=== PATIENT | male | born 1940 | race Caucasian/White ===

== ENCOUNTER 2017-09-08 14:25 | Observation (INO) ==
--- NOTE | 2017-09-08 15:22 | Emergency Department Note ---
Disposition Clinical Impression: TIA (transient ischemic attack) Qualifiers: Transient cerebral ischemia type: unspecified Qualified Code(s): G45.9 - Transient cerebral ischemic attack, unspecified Disposition: Admitted As Inpatient Condition: Good Time of Disposition: 18:38 Neuro HPI - General Chief Complaint: ED Neuro Symptoms/Deficit Stated Complaint: numbness to right face and arm Time Seen by Provider: 09/08/17 14:49 Source: patient Limitations: no limitations Nursing Notes Reviewed: Yes Vital Signs Reviewed: Yes - History of Present Illness HPI Narrative: Patient 77-year-old male past medical history for stroke and LA who presents with 3 days of right-sided paresthesias. Patient states he is able to walk fine but does not trust his right leg since his symptoms started. I take that as some form of weakness. Patient used to be on Plavix but currently not on anything but aspirin. Patient denies any chest pain but states he has right shoulder pain for which he describes as an ache there is 3/10 but does not change with movement. Patient states the numbness and tingling is at the corner of the right side of his mouth. Pt saw Dr. Valencia today and his amlodipine was increased and when he found out the patient had his pain symptoms and came to the ED 3 days ago but left before he could be seen, patient was directed to come to the ED immediately. - Related Data Home Medications: Home Medications Medication Instructions Recorded Confirmed Aspirin 81 mg PO QAM 10/19/15 09/08/17 Isosorbide MONOnitrate (24 HR) 30 mg PO QPM 10/19/15 09/08/17 [Imdur] Latanoprost [Xalatan] 1 drop OP HS 10/19/15 09/08/17 Lisinopril [Zestril] 20 mg PO QAM 10/19/15 09/08/17 Metoprolol XL (24 HR) Succ [Toprol 25 mg PO QAM 10/19/15 09/08/17 XL] amLODIPine [Norvasc] 5 mg PO DAILY 09/08/17 09/08/17 Allergies/Adverse Reactions: Allergies Allergy/AdvReac Type Severity Reaction Status Date / Time [id number]-[id number] Reductase AdvReac Intermediate Cramping Verified 10/19/15 10:32 Inhibitor of the [Statins] Muscles All systems ED: reviewed and negative except as stated. Review of Systems: As Per HPI Constitutional: Denies: fever, chills, weakness Eyes: Reports: vision change ENT ED: Denies: congestion Cardiovascular: Denies: chest pain, palpitations Respiratory: Denies: cough, dyspnea, wheezes Gastrointestinal: Denies: abdominal pain, nausea, vomiting, diarrhea Genitourinary: Denies: urgency, dysuria Musculoskeletal: Denies: back pain, neck pain Integumentary: Denies: rash Neurological: Denies: headache Psychiatric: Denies: anxiety Endocrine: Denies: fatigue Past Medical History - Past Medical History Attestation: Yes The following information was validated with the patient. Source: patient Medical history: Reports: coronary artery disease, CVA, hypertension, TIA, other Surgical history: Reports: angioplasty/stent, cholecystectomy (Biliary stent), other Psychiatric history: Reports: no psych history - Social History Smoking Status: Never smoker Smokeless Tobacco Status: No Alcohol use: Reports: none Drug use: Reports: none Physical Exam Vital Signs Temperature 98.3 F 09/08/17 14:33 Pulse Rate 79 09/08/17 14:33 Respiratory Rate 18 09/08/17 14:33 Blood Pressure 198/95 09/08/17 14:33 O2 Sat by Pulse Oximetry 96 09/08/17 14:33 Temperature 98.3 F 09/08/17 14:33 Pulse Rate 76 09/08/17 15:00 Respiratory Rate 18 09/08/17 15:00 Blood Pressure 165/99 09/08/17 15:00 O2 Sat by Pulse Oximetry 96 09/08/17 15:05 Oxygen Delivery Oxygen Delivery Room Air Patient is alert and oriented 3 and in no acute distress. Patient has a NIH score is 0. Patient's old pronator drift and no focal neurologic deficits, patient has equal strength in upper and lower extremities 5/5. No decrease in sensation. No facial droop or aphasia. Patient able to family without issue no loss of balance no ataxia. Patient able to perform most of the cross midline but taken right thumb touching left ear with eyes closed and protrude tongue and repeat with other side. No dysdiadochokinesis - General Limitations: no limitations General appearance: alert - Head Head exam: atraumatic, normocephalic, normal inspection - Eye Eye exam: Present: normal appearance, PERRL, EOMI - ENT ENT exam: normal exam, normal oropharynx, mucous membranes moist - Neck Neck exam: Present: normal inspection, full ROM, trachea midline - Chest Chest inspection: Present: normal inspection, symmetric chest wall rise - Respiratory Respiratory exam: Present: normal lung sounds bilaterally - Cardiovascular Cardiovascular exam: Present: regular rate, normal rhythm, normal heart sounds - Abdominal Exam Abdominal exam: Present: soft, Non-Tender. Absent: tenderness, distention, guarding, rebound, rigidity - Extremities Exam Extremities exam: Present: normal inspection, full ROM, normal capillary refill. Absent: tenderness, pedal edema, joint swelling, calf tenderness - Back Exam Back exam: Present: normal inspection, full ROM. Absent: tenderness, CVA tenderness (R), CVA tenderness (L) - Neurological Exam Neurological exam: Present: alert, oriented X3, CN II-XII intact Course Vital Signs Temperature 98.3 F 09/08/17 14:33 Pulse Rate 79 09/08/17 14:33 Respiratory Rate 18 09/08/17 14:33 Blood Pressure 198/95 09/08/17 14:33 O2 Sat by Pulse Oximetry 96 09/08/17 14:33 Temperature 97.9 F 09/08/17 19:47 Pulse Rate 64 09/08/17 19:47 Respiratory Rate 16 09/08/17 19:47 Blood Pressure 177/97 09/08/17 19:47 O2 Sat by Pulse Oximetry 96 09/08/17 19:47 Oxygen Delivery Oxygen Delivery Room Air Neuro Symptoms/Deficit - MDM Narrative Medical decision making narrative: Patient complains of complete right-sided numbness and tingling and intermittent right lower extremity instability past 3 days history of stroke and LA concerning for CVA. Patient states he had paresthesias to the corner of his mouth on the right side currently not able to identify at time of exam. The patient's history is also concerning for ACS/LA. Workup includes CBC, BMP, troponin, CT head. patient has no lab abnormalities. CT head negative for any intracranial abnormalities. Patient's right shoulder imaging shows chronic degeneration and patient's chest x-ray shows no abdomen pains. Patient sent for MRI/MRA. Current plan is for admission for TIA this patient's symptoms seemed to have resolved. Patient understands and accepts the decision for admission Dr. Liu has accepted Pt for admission 1838hrs. - Lab Data Lab results reviewed: Yes I reviewed the patient's lab results. Lab results narrative: Short CBC 09/08/17 Range/Units 15:15 WBC 7.0 (4.3-11.1) K/mcL Hgb 16.6 (12.9-16.9) g/dL Hct 46.1 (37.5-50.1) % Plt Count 185 (140-400) K/mcL Neutrophils # 4.5 (1.6-8.9) K/mcL BMP 09/08/17 Range/Units 15:15 Sodium 140 (136-145) mEq/L Potassium 4.1 (3.5-4.5) mEq/L Chloride 106 (98-109) mEq/L Carbon Dioxide 25 (19-29) mEq/L BUN 15 (8-26) mg/dL Creatinine 1.09 (0.72-1.25) mg/dL Glucose 97 (70-99) mg/dL Calcium 9.7 (8.6-10.8) mg/dL Cardiac Enzymes 09/08/17 Range/Units 15:15 Troponin I 0.00 (0-0.03) ng/mL Result diagrams: 09/08/17 15:15 09/08/17 15:15 Lab Results 09/08/17 09/08/17 09/08/17 Range/Units 15:15 15:15 15:15 WBC 7.0 (4.3-11.1) K/mcL RBC 5.26 (4.19-5.50) M/mcL Hgb 16.6 (12.9-16.9) g/dL Hct 46.1 (37.5-50.1) % MCV 87.6 (83.0-100.0) fL MCH 31.6 (28.0-33.3) pg MCHC 36.0 H (31.6-35.5) g/dL RDW 13.1 (11.5-14.5) % Plt Count 185 (140-400) K/mcL MPV 9.6 (9.4-12.4) fL Immature Gran % 0.3 (0-4) % Seg Neutrophils % 63.4 % Lymphocytes % 22.3 % Monocytes % 9.0 % Eosinophils % 4.3 % Basophils % 0.7 % Neutrophils # 4.5 (1.6-8.9) K/mcL Lymphocytes # 1.6 (0.6-4.6) K/mcL Monocytes # 0.6 (0.0-1.3) K/mcL Eosinophils # 0.3 (0.0-0.6) K/mcL Basophils # 0.1 (0.0-0.2) K/mcL PT 13.8 H (9.4-12.1) Seconds INR 1.3 APTT 33.7 (26.0-36.0) Seconds Sodium 140 (136-145) mEq/L Potassium 4.1 (3.5-4.5) mEq/L Chloride 106 (98-109) mEq/L Carbon Dioxide 25 (19-29) mEq/L BUN 15 (8-26) mg/dL Creatinine 1.09 (0.72-1.25) mg/dL Est GFR ( Amer) > 60 (> 60) Est GFR (Non-Af Amer) > 60 (> 60) BUN/Creatinine Ratio 14 (6-26) Glucose 97 (70-99) mg/dL Calculated Osmolality 291 (280-300) Calcium 9.7 (8.6-10.8) mg/dL Troponin I (0-0.03) ng/mL B-Natriuretic Peptide (0-100) pg/mL 09/08/17 09/08/17 Range/Units 15:15 15:15 WBC (4.3-11.1) K/mcL RBC (4.19-5.50) M/mcL Hgb (12.9-16.9) g/dL Hct (37.5-50.1) % MCV (83.0-100.0) fL MCH (28.0-33.3) pg MCHC (31.6-35.5) g/dL RDW (11.5-14.5) % Plt Count (140-400) K/mcL MPV (9.4-12.4) fL Immature Gran % (0-4) % Seg Neutrophils % % Lymphocytes % % Monocytes % % Eosinophils % % Basophils % % Neutrophils # (1.6-8.9) K/mcL Lymphocytes # (0.6-4.6) K/mcL Monocytes # (0.0-1.3) K/mcL Eosinophils # (0.0-0.6) K/mcL Basophils # (0.0-0.2) K/mcL PT (9.4-12.1) Seconds INR APTT (26.0-36.0) Seconds Sodium (136-145) mEq/L Potassium (3.5-4.5) mEq/L Chloride (98-109) mEq/L Carbon Dioxide (19-29) mEq/L BUN (8-26) mg/dL Creatinine (0.72-1.25) mg/dL Est GFR ( Amer) (> 60) Est GFR (Non-Af Amer) (> 60) BUN/Creatinine Ratio (6-26) Glucose (70-99) mg/dL Calculated Osmolality (280-300) Calcium (8.6-10.8) mg/dL Troponin I 0.00 (0-0.03) ng/mL B-Natriuretic Peptide 28 (0-100) pg/mL - Radiology Data Radiology results reviewed: Yes I reviewed the patient's radiology results. Head CT 09/08/17 15:08 IMPRESSION: Stable CT scan of the head without acute intracranial abnormality. D/ / Javier Ariza MD / Javier Ariza MD Interpreting Provider: Javier Ariza MD Chest X-Ray 09/08/17 16:22 IMPRESSION: No acute cardiopulmonary abnormality. D/ / Holland Li MD / Holland Li MD Interpreting Provider: Holland Li MD Shoulder X-Ray 09/08/17 16:23 IMPRESSION: Moderate degenerative changes at the acromioclavicular joint without acute osseous fracture. D/ / Javier Ariza MD / Javier Ariza MD Interpreting Provider: Javier Ariza MD - EKG Data EKG attestation: Yes I reviewed and interpreted this EKG. EKG shows normal: sinus rhythm Rate: normal When compared to previous EKG there are: no significant changes Interpretation: normal EKG NIH Stroke Scale - Level of Consciousness LOC: Alert - LOC Questions LOC Questions: Answers both correctly - LOC Commands LOC Commands: Performs both correctly - Best Gaze Best Gaze: Normal - Visual Visual: No visual loss - Facial Palsy Facial Palsy: Normal - Motor Arms Motor Arm-Left: No drift for 10 seconds Motor Arm-Right: No drift for 10 seconds - Motor Legs Motor Leg-Left: No drift for 5 seconds Motor Leg-Right: No drift for 5 seconds - Limb Ataxia Limb Ataxia: Absent of affected limb too weak to perform exam - Sensory Sensory: Normal - Best Language Best Language: No aphasia - Dysarthria Dysarthria: Normal - Extinction and Inattention Extinction and Inattention: Normal - NIHSS Total Score NIHSS Total Score: 0 TPA Checklist - LKW: 3-4.5 hrs Add. Warnings/Precautions Patient/family understanding: The patient/family members have been counseled and understood the risk, benefit , and alternatives of treatment.
--- NOTE | 2017-09-08 15:25 | Emergency Department Note ---
START Narrative - START START: I examined this patient and my medical decision-making was reviewed with the Resident Physician. I agree with the documented findings, disposition and treatment plan as described except to the extent set forth below. 77-year-old male presents with a three-day history of right face arm and leg tingling. No true weakness. No speech problems. No vision changes. Patient has numbness and tingling sensation involving the right crack of the mouth which is concerning for CVA TIA symptoms. We will do lab work as well as a CT of the brain. Patient will need to be admitted for further workup. He states he did take a daily aspirin today.
[2017-09-08 15:51] LABS: Basophils # 0.1 K/mcL (0.0-0.2); Basophils % 0.7 %; Eosinophils # 0.3 K/mcL (0.0-0.6); Eosinophils % 4.3 %; Hematocrit 46.1 % (37.5-50.1); Hemoglobin 16.6 g/dL (12.9-16.9); Immature Granulocytes % 0.3 % (0-4); Lymphocytes # 1.6 K/mcL (0.6-4.6); Lymphocytes % 22.3 %; Mean Corpuscular Hemoglobin 31.6 pg (28.0-33.3); Mean Corpuscular Volume 87.6 fL (83.0-100.0); Mean Platelet Volume 9.6 fL (9.4-12.4); Monocytes # 0.6 K/mcL (0.0-1.3); Neutrophils # 4.5 K/mcL (1.6-8.9); Platelet Count 185 K/mcL (140-400); Red Blood Count 5.26 M/mcL (4.19-5.50); Red Cell Distribution Width 13.1 % (11.5-14.5); Segmented Neutrophils % 63.4 %
[2017-09-08 15:58] LABS: INR 1.3; Prothrombin Time 13.8 Seconds (9.4-12.1)
[2017-09-08 16:00] LABS: Activated Partial Thrombo Time 33.7 Seconds (26.0-36.0); BUN/Creatinine Ratio 14 (6-26); Blood Urea Nitrogen 15 mg/dL (8-26); Calcium 9.7 mg/dL (8.6-10.8); Carbon Dioxide 25 mEq/L (19-29); Chloride 106 mEq/L (98-109); Glucose 97 mg/dL (70-99); Osmolality,Calculated 291 (280-300); Potassium 4.1 mEq/L (3.5-4.5); Sodium 140 mEq/L (136-145); eGFR For African Americans > 60 (> 60); eGFR For Non-African Americans > 60 (> 60)
[2017-09-08] MEDS ORDERED: Acetaminophen 325 MG TABLET PO PRN (20:55)
[2017-09-08] MEDS ORDERED: Naloxone 0.4 MG/ML INJ IVP PRN (20:55)
[2017-09-08] MEDS ORDERED: Ondansetron 4 MG/2 ML VIAL IVP PRN (20:55)
[2017-09-08] MEDS ORDERED: Latanoprost 2.5 ML BOTTLE RIGHT EYE SCH (21:00)
--- NOTE | 2017-09-08 23:56 | Internal Med History&Physical ---
<Barb Lechuga - Last Filed: 09/09/17 00:08> Date of Encounter: 09/09/17 Time of Encounter: 21:00 Assessment and Plan (1) TIA (transient ischemic attack) Current visit: Yes Status: Acute 1 is experiencing numbness tingling to right side of face, has tingling to his right arm and leg as well. Has history of TIA symptoms in the past. CT and MRI MRA are negative for any endocrine abnormalities. We will obtain cardiac echo Patient is on a statin and we will initiate on fenofibrate check lipid profile in a.m. We will start aspirin and placed on Aggrenox Consult neurology-order has been placed-day team to follow up Continue with neuro checks Continuous cardiac monitoring Qualifiers: Transient cerebral ischemia type: unspecified Qualified Code(s): G45.9 - Transient cerebral ischemic attack, unspecified (2) CAD (coronary artery disease) Current visit: No Status: Chronic Is as history of coronary disease with stent placement in the past. We will continue with a beta sima fenofibrate as well as Aggrenox. Nitroglycerin as needed Oxygen as needed Continuous cardiac monitoring Qualifiers: Coronary Disease-Associated Artery/Lesion type: [place] artery [place] vs. transplanted heart: [place] heart Associated angina: with unspecified angina Qualified Code(s): I25.119 - Atherosclerotic heart disease of [place] coronary artery with unspecified angina pectoris (3) Hypertension Current visit: No Status: Chronic Continue with ANA and beta sima Low-sodium diet Qualifiers: Hypertension type: essential hypertension Qualified Code(s): I10 - Essential (primary) hypertension (4) DVT prophylaxis Current visit: No Status: Acute NAOMI delaney Internal Medicine - H&P: HPI Chief complaint: R sided numbness tingling Admitted From: Emergency Dept Plans for Post Hospital Care: Home History of present illness: Mr. Boyd is a 77 year old male past medical history of hypertension CAD with stent TIAs. Until patient the past 3 days he has been experiencing right-sided numbness and tingling to his face and right arm and right lower leg. He denies any facial droop difficulty swallowing or speaking difficulty walking or weakness. He does have past history of TIA and he said that symptoms are similar to previous TIA. He did see Dr. Valencia today and informed him of his symptoms and he was advised to go to the ER immediately. In the ER CT MRI MRA of head were all negative for any intracranial abnormalities or bleeds. Lab work was unremarkable he was admitted for further workup and evaluation. Presently he is neurologically intact with only complaints of slight paresthesia to right side of face particularly corner of his right mouth. Past Med Surg Social Fam HX - Past Medical History Medical history: coronary artery disease, CVA, hypertension, TIA, other Psychiatric history: no psych history - Past Surgical History Surgical History: angioplasty/stent, cholecystectomy (Biliary stent), other - Social History Smoking Status: Never smoker Smokeless Tobacco Status: No Alcohol use: none Drug use: none - Family History Father Living Status: Hx Family Cardiac Disorders: Yes Internal Medicine - H&P: Meds Aspirin 81 mg PO QAM 10/19/15 [History] Isosorbide MONOnitrate (24 HR) [Imdur] 30 mg PO QPM 10/19/15 [History] Latanoprost [Xalatan] 1 drop OP HS 10/19/15 [History] Lisinopril [Zestril] 20 mg PO QAM 10/19/15 [History] Metoprolol XL (24 HR) Succ [Toprol XL] 25 mg PO QAM 10/19/15 [History] amLODIPine [Norvasc] 5 mg PO DAILY 09/08/17 [History] 3 Allergy/AdvReac Type Severity Reaction Status Date / Time Ljwysmq-Lli-Olw Reductase AdvReac Intermediate Cramping Verified 10/19/15 10:32 Inhibitor of the [Statins] Muscles All Systems PM: A 10-system review of systems was performed and is negative for pertinent findings except as documented above in the HPI. - Constitutional Constitutional: no chills, no fever(s), no night sweats - EENT Eyes: no change in vision, no discharge, no pain, no photophobia Nose, mouth and throat: no dysphagia, no nasal discharge, no neck pain, no sore throat - Cardiovascular Cardiovascular ROS IM: no chest pain, no diaphoresis, no dyspnea, no lightheadedness, no palpitations, no syncope - Respiratory Respiratory: no cough, no dyspnea, no wheezing, no excessive phlegm production - Gastrointestinal Gastrointestinal: no abdominal pain, no diarrhea, no hematemesis, no hematochezia, no melena, no nausea, no vomiting - Musculoskeletal Musculoskeletal ROS IM: no numbness, no tingling - Integumentary Integumentary IM: no rash, no unusual bruising - Neurological Neurological ROS: numbness, paresthesias, tingling - Hematologic/Lymphatic Hematologic/Lymphatic: no easy bruising - Constitutional Vitals: Temp Pulse Resp BP Pulse Ox 97.9 F 64 16 177/97 96 09/08/17 19:47 09/08/17 19:47 09/08/17 19:47 09/08/17 19:47 09/08/17 19:47 General appearance: Present: A&O X 3, answers questions appropriately - Head Head exam: Present: atraumatic, normocephalic - Eye Eye exam: Present: PERRL, conjuntiva pink, sclera anicteric Pupils: Present: PERRL - Neck Neck exam general surgery: Present: supple, trachea midline. Absent: lymphadenopathy - Respiratory Respiratory exam: Present: CTAB. Absent: accessory muscle use, rales, rhonchi, wheezes - Cardiovascular Cardiovascular exam: Present: RRR, +S1, +S2. Absent: diastolic murmur, gallop, rubs, systolic murmur - GI/Abdominal GI/Abdominal exam: Present: normal bowel sounds, soft, no peritoneal signs. Absent: distended, tenderness - Extremities Exam Extremities exam: Present: warm, radial pulses palpable and symmetrical. Absent : calf tenderness, cyanotic, pedal edema - Neurological Exam Neurological exam: Present: alert, CN II-XII intact, oriented X3, no focal deficits, strengths equal and symetr throughout. Absent: pronater drift, facial droop, speech deficit - Skin Skin exam: Present: dry, intact Internal Med - H&P Results - Labs CBC & Chem 7: 09/08/17 15:15 09/08/17 15:15 Labs: Cardiac Enzymes 09/08/17 Range/Units 21:15 Troponin I 0.00 (0-0.03) ng/mL - EKG Data EKG shows normal: sinus rhythm Rate: normal - EKG Data Prior EKG available for review: yes When compared to previous EKG: there is no significant change - Diagnostic Studies Other Images Additional comments: Brain MRI 09/08/17 00:00 IMPRESSION: 1. No acute intracranial abnormality. 2. Normal MRA of the head. 3. Stable bilateral anterior frontal encephalomalacia in keeping with sequela of remote insult. 4. Stable mild chronic white matter microvascular ischemic changes. 5. Findings suggest acute right sphenoid sinusitis. D/ / Holland Li MD / Holland Li MD Interpreting Provider: Holland Li MD Head CT 09/08/17 15:08 IMPRESSION: Stable CT scan of the head without acute intracranial abnormality. D/ / Javier Ariza MD / Javier Ariza MD Interpreting Provider: Javier Ariza MD Chest X-Ray 09/08/17 16:22 IMPRESSION: No acute cardiopulmonary abnormality. D/ / Holland Li MD / Holland Li MD Interpreting Provider: Holland Li MD Shoulder X-Ray 09/08/17 16:23 IMPRESSION: Moderate degenerative changes at the acromioclavicular joint without acute osseous fracture. D/ / Javier Ariza MD / Javier Ariza MD Interpreting Provider: Javier Ariza MD Head MRA 09/08/17 17:27 IMPRESSION: 1. No acute intracranial abnormality. 2. Normal MRA of the head. 3. Stable bilateral anterior frontal encephalomalacia in keeping with sequela of remote insult. 4. Stable mild chronic white matter microvascular ischemic changes. 5. Findings suggest acute right sphenoid sinusitis. D/ / Holland Li MD / Holland Li MD Interpreting Provider: Holland Li MD <Lupillo Gardner - Last Filed: 09/09/17 01:11> Date of Encounter: 09/08/17 Internal Medicine - H&P: HPI History of present illness: Mr. Boyd is a 77 year old male All Systems PM: A 10-system review of systems was performed and is negative for pertinent findings except as documented above in the HPI. - Constitutional Vitals: Temp Pulse Resp BP Pulse Ox 97.8 F 71 15 103/55 94 09/09/17 00:00 09/09/17 00:00 09/09/17 00:00 09/09/17 00:00 09/09/17 00:00 Internal Med - H&P Results - Labs CBC & Chem 7: 09/08/17 15:15 09/08/17 15:15 Labs: Cardiac Enzymes 09/08/17 Range/Units 21:15 Troponin I 0.00 (0-0.03) ng/mL - Attending Attestation Correction; date of encounter was 09/08/17 and not 09/09/17 I personally interviewed and examined this patient and my medical decision- making was reviewed with the Advanced Practice Nurse. I agree with the documented findings, disposition and treatment plan as described except to the extent set forth below. Patient with TIA about 3 to 4 years ago presents with similar symptoms on the same side as prior, MRI of the brain did not reveal any evidence of an acute infarct. MRA of the head was unremarkable for high-grade stenosis, will follow carotid dopplers, 2D echo for thrombus, neurology consult. Lupillo Gardner MD, MPH Hospitalist
[2017-09-09 05:38] LABS: Basophils # 0.1 K/mcL (0.0-0.2); Basophils % 0.8 %; Eosinophils # 0.3 K/mcL (0.0-0.6); Hematocrit 42.5 % (37.5-50.1); Immature Granulocytes % 0.3 % (0-4); Lymphocytes # 1.5 K/mcL (0.6-4.6); Lymphocytes % 22.6 %; Mean Corpuscular HGB Conc 34.6 g/dL (31.6-35.5); Mean Corpuscular Hemoglobin 31.2 pg (28.0-33.3); Mean Corpuscular Volume 90.2 fL (83.0-100.0); Mean Platelet Volume 9.8 fL (9.4-12.4); Monocytes # 0.8 K/mcL (0.0-1.3); Monocytes % 11.3 %; Platelet Count 181 K/mcL (140-400); Red Blood Count 4.71 M/mcL (4.19-5.50)
[2017-09-09 05:39] LABS: Hemoglobin 14.7 g/dL (12.9-16.9)
[2017-09-09 05:59] LABS: BUN/Creatinine Ratio 16 (6-26); Blood Urea Nitrogen 17 mg/dL (8-26); Calcium 9.3 mg/dL (8.6-10.8); Carbon Dioxide 23 mEq/L (19-29); Chloride 109 mEq/L (98-109); Chol/HDL Ratio 6.1 (0-4.9); Cholesterol 152 mg/dL (< 200); Glucose 108 mg/dL (70-99); HDL Cholesterol 25 mg/dL (40-59); LDL Cholesterol,Calculated 58 mg/dL (0-99); Magnesium 2.2 mg/dL (1.6-2.6); Osmolality,Calculated 290 (280-300); Potassium 3.9 mEq/L (3.5-4.5); Sodium 139 mEq/L (136-145); Triglycerides 343 mg/dL (< 150); eGFR For African Americans > 60 (> 60); eGFR For Non-African Americans > 60 (> 60)
[2017-09-09] MEDS ORDERED: *HR* Heparin 5,000 UNIT/ML VIAL SQ SCH (06:00)
[2017-09-09] MEDS ORDERED: Latanoprost 2.5 ML BOTTLE RIGHT EYE SCH (09:00)
[2017-09-09] MEDS ORDERED: Metoprolol XL (24 HR) Succ 25 MG TAB.ER.24H PO SCH (09:00)
[2017-09-09] MEDS ORDERED: Aspirin 81 MG TAB.CHEW PO SCH (09:00)
[2017-09-09] MEDS ORDERED: Lisinopril 20 MG TABLET PO SCH (09:00)
[2017-09-09] MEDS ORDERED: Fenofibrate 54 MG TABLET PO SCH (09:00)
--- NOTE | 2017-09-09 11:01 | Neurology - Consult Note ---
<Naren Sanchez - Last Filed: 09/09/17 11:23> Date of Encounter: 09/09/17 Time of Encounter: 10:30 Assessment and Plan (1) Neurological symptoms Current Visit: Yes Status: Acute Patient reports having continued right facial and leg tingling for several days duration. Neurological exam only revealed minor hyperalgesia in his right face and leg. Imaging performed includes a MRI of the brain, MRA of the head, carotid dopplers, and echocardiogram. No infarct is seen on MRI, vasculature of his head is normal, and the carotid dopplers show non-stenotic plaque bilaterally (preliminarily). His main finding is hyperalgesia that could be vascular, but more likely is coming from his cervical spine. Will wait on final results of echo and dopplers will start gabapentin QHS and 1 now for nerve pain Patient started on aggrenox, continue this Will obtain MRI of cervical spine History of Present Illness Chief complaint: Continued right sided tingling HPI: Mr. Boyd is a 77 year old male with medical history significant for coronary artery disease, hypertension, and prior paresthesias of right arm and face presented to the emergency room yesterday after 3 days of right face and arm tingling. He states his symptoms began on Wednesday note not improved much since that point. He states he is having a tingling sensation on the right side of his face and down the entire right side of his body. He states that they are was some possible right facial droop observed, but is not present at this time. He states he has significant shoulder pain in the first couple days of his tingling, but this has abated on its own somewhat. He denies having any headache, or new significant changes in vision. He states he had cataract surgery 3 years ago after which she has had double vision at long distances. At no time last few days has he had any weakness or lack of coordination. He is otherwise been healthy with no complaints of fever/chills, chest pain, or shortness of breath. Past Med Surg Social Fam HX - Past Medical History Medical history: coronary artery disease, CVA, hypertension, TIA, other Psychiatric history: no psych history - Past Surgical History Surgical History: angioplasty/stent, cholecystectomy (Biliary stent), other - Social History Smoking Status: Never smoker Smokeless Tobacco Status: No Alcohol use: none Drug use: none - Family History Father Living Status: Hx Family Cardiac Disorders: Yes Medications and Allergies Aspirin 81 mg PO QAM 10/19/15 [History] Isosorbide MONOnitrate (24 HR) [Imdur] 30 mg PO QPM 10/19/15 [History] Latanoprost [Xalatan] 1 drop OP HS 10/19/15 [History] Lisinopril [Zestril] 20 mg PO QAM 10/19/15 [History] Metoprolol XL (24 HR) Succ [Toprol XL] 25 mg PO QAM 10/19/15 [History] amLODIPine [Norvasc] 5 mg PO DAILY 09/08/17 [History] Fenofibrate [Tricor] 54 mg PO DAILY #30 tablet 09/09/17 [Rx] Gabapentin [Neurontin] 300 mg PO HS #42 capsule 09/09/17 [Rx] 3 Allergy/AdvReac Type Severity Reaction Status Date / Time rosuvastatin [From Crestor] AdvReac Intermediate Cramping Verified 09/09/17 11: 22 of the Muscles Review of Systems: Gen: Denies fever, denies chills, denies weakness CV: Denies chest pain Resp: Denies shortness of breath, denies coughing GI: Denies nausea, denies vomiting, denies abdominal pain MSK: Reports pain in shoulder as per history of present illness, denies muscle weakness Neuro: Denies headache, denies confusion, denies focal weakness, denies numbness , reports tingling as per HPI, denies new vision changes Physical Examination - Vital Signs Vital Signs: Initial Vital Signs Temp Pulse Resp BP Pulse Ox 98.3 F 79 18 198/95 96 09/08/17 14:33 09/08/17 14:33 09/08/17 14:33 09/08/17 14:33 09/08/17 14:33 - Exam Exam: General: Cooperative, pleasant, no acute distress, alert and oriented 3, answers questions appropriately HEENT: Normocephalic, atraumatic, neck supple, trachea midline, Conjunctiva pink , sclera anicteric, EOMI, PERRL, oral mucosa moist, no orophargeal erythema or exudates, no carotid bruits appreciated Respiratory: No accessory muscle usage Cardiovascular: Regular rate and rhythm Extremities: No calf tenderness, noncyanotic, no pedal edema appreciated, warm, lower extremity pulses palpable and symmetrical Neurological: Alert and oriented 3, no facial droop, no focal deficits, cranial nerves II through XII grossly intact bilaterally, rapid alternating movements smooth with good gómez, finger to nose smooth and accurate, sensation to gross touch intact in upper and lower extremities bilaterally, increased sensation to light touch in right face and right leg, strength 5/5 in upper and lower extremities bilaterally, DTRs 2/4 in Achilles, patellar, brachioradialis, biceps, and triceps, Romberg normal, gait smooth without limp Results - Laboratory Findings CBC and BMP: 09/09/17 05:20 09/09/17 05:20 Abnormal lab findings: Abnormal lab results PT 13.8 Seconds (9.4-12.1) H 09/08/17 15:15 Glucose 108 mg/dL (70-99) H 09/09/17 05:20 Triglycerides 343 mg/dL (< 150) H 09/09/17 05:20 VLDL Cholesterol, Calc 69 mg/dL (< 31) H 09/09/17 05:20 HDL Cholesterol 25 mg/dL (40-59) L 09/09/17 05:20 Cholesterol/HDL Ratio 6.1 (0-4.9) H 09/09/17 05:20 Consult Discharge Plan - Plan Additional Instructions: Follow-up with your primary care provider/[facility] physician to return to work. Follow-up with neurology in the office as scheduled. Taking the medications as directed. I have given you a 2 week supply of gabapentin, you will need to follow up with her primary care provider for refills and continued evaluation. Return to the emergency department as needed for any other problems or concerns , or if symptoms return or worsen. Return to prior activities as tolerated. Continue your other home medications. Referrals: [facility] [place],Adiel Forman MD [Primary Care Provider] - Prescriptions: Fenofibrate [Tricor] 54 mg PO DAILY #30 tablet Gabapentin [Neurontin] 300 mg PO HS #42 capsule <Gini Wilkinson I - Last Filed: 09/09/17 16:53> Date of Encounter: 09/09/17 Assessment and Plan (1) Neurological symptoms Current Visit: Yes Status: Acute I agree with Dr Sanchez, documentation. MRi of brain didt show any acute acute intracranial abnormality. 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 mild chronic white matter microvascular ischemic changes noted along with acute right sphenoid sinusitis. as NO evidence of any acute stroke, suggest to continue on ANTIPLATELET therapy as its symptoms could be related to underlying DJD of cervical spine, may benefit from MR C Spine other meds continue as its Shemar Wilkinson MD History of Present Illness HPI: Mr. Boyd is a 77 year old male All Systems: A 10-system review of systems was performed and is negative for pertinent findings except as documented above in the HPI. Physical Examination - Vital Signs Vital Signs: Initial Vital Signs Temp Pulse Resp BP Pulse Ox 98.3 F 79 18 198/95 96 09/08/17 14:33 09/08/17 14:33 09/08/17 14:33 09/08/17 14:33 09/08/17 14:33 Results - Laboratory Findings CBC and BMP: 09/09/17 05:20 09/09/17 05:20 Abnormal lab findings: Abnormal lab results PT 13.8 Seconds (9.4-12.1) H 09/08/17 15:15 Glucose 108 mg/dL (70-99) H 09/09/17 05:20 Triglycerides 343 mg/dL (< 150) H 09/09/17 05:20 VLDL Cholesterol, Calc 69 mg/dL (< 31) H 09/09/17 05:20 HDL Cholesterol 25 mg/dL (40-59) L 09/09/17 05:20 Cholesterol/HDL Ratio 6.1 (0-4.9) H 09/09/17 05:20
[2017-09-09] MEDS ORDERED: Gabapentin 300 MG CAPSULE PO STA (11:32)
[2017-09-09 14:54] VITALS: BP 152/82
--- NOTE | 2017-09-09 16:22 | Discharge Summary ---
Date of Encounter: 09/09/17 Time of Encounter: 09:50 - Discharge Diagnosis (1) TIA (transient ischemic attack) Priority: Primary Status: Acute Comments: Patient reported to the emergency department with complaints of tingling/ numbness to the right side of his body. He denies loss of strength in the extremities. He does not have any focal neurological deficits. He does have very minimal droop corner right mouth. Patient has had similar symptoms in the past was diagnosed with a TIA. Head CT and brain MRI/head MRA are negative for any intracranial abnormalities. Carotid Doppler showed bilateral nonstenotic plaque. C-spine MRI showed mild C6-7 degenerative disc disease and mild multilevel facet hypertrophy. It also showed multilevel spinal canal stenosis, moderate at C6-7 and mild at C3-4, C5-C6, and C7-T1. There is also multilevel neural foraminal narrowing as detailed above in greatest involvement of the left C4 neuroforaminal foramen where it is moderate. patient has been seen by neurology who ordered the C-spine MRI. They placed him on Neurontin, he will continue this after discharge. Neurologically, patient is intact and has no noticeable deficits or weakness. 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 Patient will continue baby aspirin daily, as well as Aggrenox 1 capsule twice daily, he will also continue his beta sima, Zestril, and TriCor. Qualifiers: Transient cerebral ischemia type: unspecified Qualified Code(s): G45.9 - Transient cerebral ischemic attack, unspecified (2) CAD (coronary artery disease) Priority: Secondary Status: Chronic Comments: Patient denies any chest pain. He has a history of coronary disease with stent placement in the past. Continue Imdur, beta sima, fenofibrate, as well as will be starting Aggrenox. Patient has nitroglycerin when necessary after discharge. He is not requiring any supplemental oxygen. Qualifiers: Coronary Disease-Associated Artery/Lesion type: [place] artery [place] vs. transplanted heart: [place] heart Associated angina: with unspecified angina Qualified Code(s): I25.119 - Atherosclerotic heart disease of [place] coronary artery with unspecified angina pectoris (3) Hypertension Priority: Secondary Status: Chronic Comments: Continue home medications. Blood pressures been well controlled and the patient setting. He will need to continue a low-fat, low-sodium diet. Continue to monitor blood pressure frequently and share results with primary care provider. Qualifiers: Hypertension type: essential hypertension Qualified Code(s): I10 - Essential (primary) hypertension (4) DVT prophylaxis Priority: Secondary Status: Acute Comments: NAOMI delaney. Early ambulation. (5) Tingling of right arm and right side of face Priority: Secondary Status: Acute Comments: Plan as above. (6) DDD (degenerative disc disease) Priority: Secondary Status: Chronic Comments: Plan as above. Qualifiers: Spinal region: mid-cervical Mid-cervical spinal level: C6-C7 Qualified Code(s): M50.323 - Other cervical disc degeneration at C6-C7 level (7) Spinal stenosis Priority: Secondary Status: Chronic Comments: Noted on MR cervical spine without contrast. Most likely be the cause of patient's numbness and tingling to the right side. The patient was started on gabapentin 300 mg by mouth 3 times a day, he states that it makes him feel badly and he does not want to continue taking it. I will lower the dose and see if that has any effectiveness. I recommend the patient does not drive and he knows the effects of the medication. Patient will follow up with neurology in the office for follow-up on this admission. Qualifiers: Spinal region: cervical Qualified Code(s): M48.02 - Spinal stenosis, cervical region - Discharge Medications Prescriptions: Fenofibrate [Tricor] 54 mg PO DAILY #30 tablet Gabapentin [Neurontin] 100 mg PO BID #20 capsule Home Medications: Aspirin 81 mg PO QAM 10/19/15 [History] Isosorbide MONOnitrate (24 HR) [Imdur] 30 mg PO QPM 10/19/15 [History] Latanoprost [Xalatan] 1 drop OP HS 10/19/15 [History] Lisinopril [Zestril] 20 mg PO QAM 10/19/15 [History] Metoprolol XL (24 HR) Succ [Toprol XL] 25 mg PO QAM 10/19/15 [History] amLODIPine [Norvasc] 5 mg PO DAILY 09/08/17 [History] Fenofibrate [Tricor] 54 mg PO DAILY #30 tablet 09/09/17 [Rx] Gabapentin [Neurontin] 100 mg PO BID #20 capsule 09/09/17 [Rx] Allergies/Adverse Reactions: 3 Allergy/AdvReac Type Severity Reaction Status Date / Time rosuvastatin [From Crestor] AdvReac Intermediate Cramping Verified 09/09/17 11: 22 of the Muscles Procedures/tests Complete & Pending: Procedures Performed prior 72 hours Category Date Time Status MR cervical spine wo con [MR] Routine MRI 09/09/17 11:34 Completed ECG 12 lead ECG [ECG] Routine Y 09/08/17 14:32 Completed EV carotid duplex imaging BI Routine Y 09/09/17 01:09 Completed EV echocardiogram Routine Y 09/09/17 22:43 Completed Date of admission: 09/08/17 18:45 Primary care physician: Adiel Valencia MD Consults: 09/08/17 22:46 Consult to Neurology [CONS] Routine Consulting Provider: Neu[facility] Reason for Consult: Numbness tingling to R side of body. Past HX of TIA - MRI MRA CT negative Time Notified: 22:48 Call Completed: No Discharging clinician: Chloe Shah Anticipated date of discharge: 09/09/17 - Patient Status Disposition: Home, Self-Care Condition: Good Functional capacity at discharge: independent ambulation Overall status at discharge: patient is progressing back to baseline - Discharge Instructions Follow Up With: Adiel Valencia MD [Primary Care Provider] - Additional Instructions: Follow-up with your primary care provider/[facility] physician to return to work. Follow-up with neurology in the office as scheduled. Taking the medications as directed. I have given you a 2 week supply of gabapentin at a lower dose with decreased frequency than you had earlier. You will need to follow up with her primary care provider for refills and continued evaluation. Return to the emergency department as needed for any other problems or concerns , or if symptoms return or worsen. Return to prior activities as tolerated. Continue your other home medications. - Diet and Activity Activity: return to work once cleared by your PCP/specialist, resume usual activities as tolerated Diet: advance to your usual diet Hospital course: Mr. Boyd is a 77 year old male - Time Spent with Patient Total time spent providing and/or coordinating discharge services: Less than 30 minutes - Constitutional Vitals: Temp Pulse Resp BP Pulse Ox 97.9 F 69 16 152/82 95 09/09/17 14:52 09/09/17 14:52 09/09/17 14:52 09/09/17 14:52 09/09/17 14:52 General appearance: Present: cooperative, A&O X 3, pleasant, no acute distress, answers questions appropriately - Head Head exam: Present: atraumatic, normal inspection, normocephalic - Eye Eye exam: Present: EOMI, normal appearance, PERRL, conjuntiva pink, sclera anicteric. Absent: nystagmus - Neck Neck exam general surgery: Present: supple, trachea midline. Absent: lymphadenopathy, tenderness - Respiratory Respiratory exam: Present: CTAB. Absent: accessory muscle use, chest wall tenderness, rales, respiratory distress, rhonchi, wheezes - Cardiovascular Cardiovascular exam: Present: RRR, +S1, +S2. Absent: diastolic murmur, gallop, rubs, systolic murmur - GI/Abdominal GI/Abdominal exam: Present: normal bowel sounds, soft, no peritoneal signs. Absent: distended, hepatomegaly, tenderness - Extremities Exam Extremities exam: Present: normal capillary refill, normal inspection, warm, radial pulses palpable and symmetrical. Absent: calf tenderness, cyanotic, pedal edema, tenderness - Neurological Exam Neurological exam: Present: alert, oriented X3, no focal deficits. Absent: facial droop, speech deficit - Skin Skin exam: Present: dry, intact, normal color, warm. Absent: rash
[2017-09-09] MEDS ORDERED: Isosorbide MONOnitrate (24 HR) 30 MG TAB.ER.24H PO SCH (18:00)
--- NOTE | 2017-09-09 20:10 | Electrocardiograph Report ---
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
--- NOTE | 2017-09-09 20:12 | Electrocardiograph Report ---
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
[2017-09-09] MEDS ORDERED: Gabapentin 300 MG CAPSULE PO SCH (21:00)
== END 2017-09-09 18:32 | disposition home or self-care (01) ==
LOC: 3BNU 14:25 → EMEROO 14:25 → 3BNU 19:20
PROVIDERS: ADMIT Nurse Practitioner Family; ATTEND Registered Nurse

== ENCOUNTER 2017-11-10 14:01 | Inpatient (IN) ==
[2017-11-10] MEDS ORDERED: 0.9 % Sodium Chloride 1,000 ML IVC ONE (14:31)
[2017-11-10] MEDS ORDERED: Ondansetron 4 MG/2 ML VIAL IVP ONE (14:31)
--- NOTE | 2017-11-10 14:35 | Emergency Department Note ---
Disposition Clinical Impression: Acute pancreatitis Qualifiers: Pancreatitis type: unspecified pancreatitis type Acute pancreatitis complication: unspecified Qualified Code(s): K85.90 - Acute pancreatitis without necrosis or infection, unspecified Disposition: Admitted As Inpatient Condition: Fair Referrals: Adiel Valencia MD [Primary Care Provider] - Forms: ED Satisfaction Letter, Work/School Release Time of Disposition: 18:48 Abdominal Pain HPI - General Chief Complaint: ED Abdominal Pain Stated Complaint: Pancreatitis Time Seen by Provider: 11/10/17 14:16 Source: patient, family Mode of arrival: ambulatory Limitations: no limitations Nursing Notes Reviewed: Yes Vital Signs Reviewed: Yes - History of Present Illness HPI Narrative: 77-year-old male history of hypertension, CAD, hyperlipidemia, gallstone pancreatitis status post cholecystectomy presents with left lower quadrant pain mild epigastric pain, he rates the pain 8 out of 10 this started yesterday at 8 PM. He has been having it throughout the day associated with nausea no emesis. So she with anorexia. He has had no diarrhea melena or hematochezia. He states he had a cholecystectomy and required subsequent stents to his gallbladder ducts up in [facility]. Patient also has a history of CAD status post stents in his heart., Denies chest pain at this time. Denies fever chills shortness of breath. Pt Subjective Complaint: abdominal pain Onset (ago): hour(s) (18) Consistency: constant Location: LLQ Pain Severity: moderate Pain Scale: 8 Quality: cramping, stabbing, aching Radiation: LLQ, epigastric Migration to: no migration Worsens with: eating Associated symptoms: Reports: denies other symptoms, nausea. Denies: vomiting, constipation, hematemesis, hematochezia - Related Data Home Medications Medication Instructions Recorded Confirmed Aspirin 81 mg PO QAM 10/19/15 11/10/17 Isosorbide MONOnitrate (24 HR) 30 mg PO QPM 10/19/15 11/10/17 [Imdur] Latanoprost [Xalatan] 1 drop OP HS 10/19/15 11/10/17 Lisinopril [Zestril] 20 mg PO QAM 10/19/15 11/10/17 Metoprolol XL (24 HR) Succ [Toprol 25 mg PO QAM 10/19/15 11/10/17 XL] amLODIPine [Norvasc] 10 mg PO DAILY 10/11/17 12/13/17 Allergies Allergy/AdvReac Type Severity Reaction Status Date / Time rosuvastatin [From Crestor] AdvReac Intermediate Cramping Verified 11/10/17 14: 08 of the Muscles All systems ED: reviewed and negative except as stated. Review of Systems: As Per HPI Constitutional: Denies: fever, chills, weakness ENT ED: Denies: ear pain Cardiovascular: Denies: chest pain Respiratory: Denies: cough, dyspnea Gastrointestinal: Reports: as per HPI, abdominal pain, nausea. Denies: vomiting , hematemesis, melena, hematochezia Genitourinary: Denies: urgency, dysuria Musculoskeletal: Denies: back pain, neck pain Abdominal Pain PMH - Past Medical History Medical history: Reports: coronary artery disease, CVA, hypertension, TIA, other Male Surgical History: Reports: angioplasty/stent, cholecystectomy, orthopedic, other Psychiatric history: Reports: no psych history - Social History Smoking status: Never smoker Alcohol use: Reports: none Drug use: Reports: none Physical Exam Constitutional: Moderately uncomfortable elderly male,, vital signs reviewed and wnl Eyes: PERRLA, sclera anicteric ENT & Mouth: MMM Neck: normal inspection, neck is supple Resp: CTA bilaterally, no resp distress CV: RRR, no m/g/r GI: Incision consistent with cholecystectomy, left lower quadrant pain with no rigidity or guarding, moderate tenderness to palpation normal bowel sounds. Neuro: A&O3, CNII-XII grossly intact, FRY Skin: on limited exam, skin intact with no rashes or lesions - General Limitations: no limitations General appearance: alert, in no apparent distress Course Course Narrative: Elderly gentleman with left lower quadrant abdominal pain differential includes pancreatitis as this is where his pain is been in the past for pancreatitis, and diverticulitis plan for abdomen and pelvis CT scan, basic lab work will reassess. - Reevaluation(s) Reevaluation #1: CT shows evidence of pancreatic stranding, lipase was 2000, patient was admitted to Dr. Yeager for medical management acute pancreatitis. Patient currently hemodynamic stable did require additional analgesic medication, admitted to the hospitalist service Time: 18:48 Vital Signs Temperature 98.5 F 11/10/17 14:08 Pulse Rate 66 11/10/17 14:08 Respiratory Rate 15 11/10/17 14:08 Blood Pressure 140/71 11/10/17 14:08 O2 Sat by Pulse Oximetry 98 11/10/17 14:08 Temperature 98.5 F 11/10/17 14:08 Pulse Rate 73 11/10/17 16:51 Respiratory Rate 12 11/10/17 16:51 Blood Pressure 159/78 11/10/17 16:51 O2 Sat by Pulse Oximetry 96 11/10/17 16:51 Oxygen Delivery Oxygen Delivery Nasal Cannula Abdominal Pain - Differential Diagnosis Differential Diagnosis: Likely: acute appendicitis, diverticulitis, ischemic bowel, pancreatitis - Medical Records Medical records reviewed: Yes I reviewed the patient's medical records. - Lab Data Lab results reviewed: Yes I reviewed the patient's lab results. Result diagrams: 11/10/17 15:06 11/10/17 15:06 Lab Results 11/10/17 11/10/17 11/10/17 Range/Units 14:19 15:06 15:06 WBC 15.3 H (4.3-11.1) K/mcL RBC 5.52 H (4.19-5.50) M/mcL Hgb 17.0 H (12.9-16.9) g/dL Hct 49.0 (37.5-50.1) % MCV 88.8 (83.0-100.0) fL MCH 30.8 (28.0-33.3) pg MCHC 34.7 (31.6-35.5) g/dL RDW 13.2 (11.5-14.5) % Plt Count 198 (140-400) K/mcL MPV 9.5 (9.4-12.4) fL Immature Gran % 0.3 (0-4) % Seg Neutrophils % 85.6 % Lymphocytes % 6.9 % Monocytes % 6.3 % Eosinophils % 0.6 % Basophils % 0.3 % Neutrophils # 13.1 H (1.6-8.9) K/mcL Lymphocytes # 1.1 (0.6-4.6) K/mcL Monocytes # 1.0 (0.0-1.3) K/mcL Eosinophils # 0.1 (0.0-0.6) K/mcL Basophils # 0.1 (0.0-0.2) K/mcL Sodium 143 (136-145) mEq/L Potassium 3.7 (3.5-4.5) mEq/L Chloride 107 (98-109) mEq/L Carbon Dioxide 25 (19-29) mEq/L BUN 19 (8-26) mg/dL Creatinine 1.27 H (0.72-1.25) mg/dL Est GFR ( Amer) > 60 (> 60) Est GFR (Non-Af Amer) 55 L (> 60) BUN/Creatinine Ratio 15 (6-26) Glucose 145 H (70-99) mg/dL Calculated Osmolality 301 H (280-300) Lactic Acid (0.5-2.2) mmol/L Calcium 10.3 (8.6-10.8) mg/dL Total Bilirubin 1.8 H (0.2-1.2) mg/dL Direct Bilirubin 0.7 H (0.0-0.5) mg/dL Indirect Bilirubin 1.1 (0.0-1.2) mg/dL AST 16 (5-34) Units/L ALT 15 (0-55) Units/L Alkaline Phosphatase 92 (38-126) Units/L Troponin I (0-0.03) ng/mL Serum Total Protein 7.8 (6.0-8.3) g/dL Albumin 4.3 (3.5-5.0) g/dL Globulin 3.5 (2.4-3.5) g/dL Albumin/Globulin Ratio 1.2 (1.1-2.2) Lipase 2002 H (8-78) Units/L Urine Color Yellow (Yellow) Urine Clarity Clear (Clear) Urine pH 6.0 (5.0-8.0) pH Units Ur Specific [place] 1.021 (1.010-1.025) Urine Protein Negative (Neg-Trace) mg/dL Urine Glucose (UA) Normal (Normal) mg/dL Urine Ketones Trace H (Negative) mg/dL Urine Blood Small H (Negative) Urine Nitrite Negative (Negative) Urine Bilirubin Negative (Negative) Urine Urobilinogen Normal (Normal) mg/dL Ur Leukocyte Esterase Negative (Negative) Urine Microscopic RBC 5-15 H (0-3) per hpf Urine Microscopic WBC 0-3 (0-3) per hpf Ur Squamous Epith Cells Moderate H (None-Few) per lpf Urine Bacteria None Seen (None-Few) per hpf Hyaline Casts None Seen (None-Few) per lpf Ur Culture Indicated? NO (NO) 11/10/17 11/10/17 Range/Units 15:06 15:06 WBC (4.3-11.1) K/mcL RBC (4.19-5.50) M/mcL Hgb (12.9-16.9) g/dL Hct (37.5-50.1) % MCV (83.0-100.0) fL MCH (28.0-33.3) pg MCHC (31.6-35.5) g/dL RDW (11.5-14.5) % Plt Count (140-400) K/mcL MPV (9.4-12.4) fL Immature Gran % (0-4) % Seg Neutrophils % % Lymphocytes % % Monocytes % % Eosinophils % % Basophils % % Neutrophils # (1.6-8.9) K/mcL Lymphocytes # (0.6-4.6) K/mcL Monocytes # (0.0-1.3) K/mcL Eosinophils # (0.0-0.6) K/mcL Basophils # (0.0-0.2) K/mcL Sodium (136-145) mEq/L Potassium (3.5-4.5) mEq/L Chloride (98-109) mEq/L Carbon Dioxide (19-29) mEq/L BUN (8-26) mg/dL Creatinine (0.72-1.25) mg/dL Est GFR ( Amer) (> 60) Est GFR (Non-Af Amer) (> 60) BUN/Creatinine Ratio (6-26) Glucose (70-99) mg/dL Calculated Osmolality (280-300) Lactic Acid 1.5 (0.5-2.2) mmol/L Calcium (8.6-10.8) mg/dL Total Bilirubin (0.2-1.2) mg/dL Direct Bilirubin (0.0-0.5) mg/dL Indirect Bilirubin (0.0-1.2) mg/dL AST (5-34) Units/L ALT (0-55) Units/L Alkaline Phosphatase (38-126) Units/L Troponin I 0.01 (0-0.03) ng/mL Serum Total Protein (6.0-8.3) g/dL Albumin (3.5-5.0) g/dL Globulin (2.4-3.5) g/dL Albumin/Globulin Ratio (1.1-2.2) Lipase (8-78) Units/L Urine Color (Yellow) Urine Clarity (Clear) Urine pH (5.0-8.0) pH Units Ur Specific [place] (1.010-1.025) Urine Protein (Neg-Trace) mg/dL Urine Glucose (UA) (Normal) mg/dL Urine Ketones (Negative) mg/dL Urine Blood (Negative) Urine Nitrite (Negative) Urine Bilirubin (Negative) Urine Urobilinogen (Normal) mg/dL Ur Leukocyte Esterase (Negative) Urine Microscopic RBC (0-3) per hpf Urine Microscopic WBC (0-3) per hpf Ur Squamous Epith Cells (None-Few) per lpf Urine Bacteria (None-Few) per hpf Hyaline Casts (None-Few) per lpf Ur Culture Indicated? (NO) - Radiology Data Radiology results reviewed: Yes I reviewed the patient's radiology results. Abdomen/Pelvis CT 11/10/17 14:36 IMPRESSION: 1. Mild stranding surrounding the pancreas with mild pancreatic ductal dilatation. Findings most compatible with acute pancreatitis. Recommend clinical correlation. No organized drainable fluid collections are identified. 2. 5 diverticulosis without evidence for diverticulitis. 3. Severe atherosclerotic disease with mild ectasia of the infrarenal abdominal aorta which is slightly increased when compared with previous exam. D/ / John Eugene MD / John Eugene MD Interpreting Provider: John Eugene MD - EKG Data EKG attestation: Yes I reviewed and interpreted this EKG. EKG shows normal: sinus rhythm (63 bpm LA 173 QRS 96 QTC [address] no [address] segment elevations or depressions, left axis) Interpretation: nonspecific ST-T wave changes - Core Measures AMI Core Measures Followed: No
--- NOTE | 2017-11-10 14:46 | Emergency Department Note ---
START Narrative - START START: I examined this patient and my medical decision-making was reviewed with the Resident Physician. I agree with the documented findings, disposition and treatment plan as described except to the extent set forth below. 77 year old male with HXo f pancreatitis presnts to the eD with complaints of pancreatitis type symptoms. He staets that his last attack was about 2013 when his galbladder was removed in addition to he has had pancreatitis attacks since 1970s. Sami states that typically when he has pancreatitis attacks it is located inthe LLQ as opposed to in his epigastrium. Sami denies F/N/V/D. He states it is acutelly tender to the area and he has been having difficulty sleeping due to it. Sami deiens heamturia, history ofkidney stones, UTIs, or blood stools. We will do labs and ABCT with IVF meds/fluids for therapy
[2017-11-10 14:50] LABS: Bilirubin,Urine Negative (Negative); Blood,Urine Small (Negative); Clarity,Urine Clear (Clear); Color,Urine Yellow (Yellow); Glucose,Urine (UA) Normal (Normal); Ketones,Urine Trace mg/dL (Negative); Leukocyte Esterase,Urine Negative (Negative); Nitrite,Urine Negative (Negative); Protein,Urine Negative (Neg-Trace); Specific Gravity,Urine 1.021 (1.010-1.025); Urobilinogen,Urine Normal (Normal)
[2017-11-10 14:51] LABS: Bacteria,Urine None Seen per hpf (None-Few); Hyaline Casts,Urine None Seen per lpf (None-Few); Squamous Epithelial Cell,Urine Moderate per lpf (None-Few); WBC,Urine 0-3 per hpf (0-3)
[2017-11-10 15:14] LABS: Basophils # 0.1 K/mcL (0.0-0.2); Basophils % 0.3 %; Eosinophils # 0.1 K/mcL (0.0-0.6); Eosinophils % 0.6 %; Immature Granulocytes % 0.3 % (0-4); Lymphocytes # 1.1 K/mcL (0.6-4.6); Lymphocytes % 6.9 %; Mean Corpuscular HGB Conc 34.7 g/dL (31.6-35.5); Mean Corpuscular Hemoglobin 30.8 pg (28.0-33.3); Mean Corpuscular Volume 88.8 fL (83.0-100.0); Mean Platelet Volume 9.5 fL (9.4-12.4); Monocytes % 6.3 %; Neutrophils # 13.1 K/mcL (1.6-8.9); Platelet Count 198 K/mcL (140-400); Red Blood Count 5.52 M/mcL (4.19-5.50); Red Cell Distribution Width 13.2 % (11.5-14.5); Segmented Neutrophils % 85.6 %
[2017-11-10] MEDS ORDERED: *HR* Morphine 2 MG/ML SYRINGE IVP ONE (15:21)
[2017-11-10 15:32] LABS: Alanine Aminotransferase 15 Units/L (0-55); Albumin 4.3 g/dL (3.5-5.0); Albumin/Globulin Ratio 1.2 (1.1-2.2); Alkaline Phosphatase 92 Units/L (38-126); Aspartate Amino Transferase 16 Units/L (5-34); BUN/Creatinine Ratio 15 (6-26); Bilirubin,Direct 0.7 mg/dL (0.0-0.5); Bilirubin,Indirect 1.1 mg/dL (0.0-1.2); Bilirubin,Total 1.8 mg/dL (0.2-1.2); Blood Urea Nitrogen 19 mg/dL (8-26); Calcium 10.3 mg/dL (8.6-10.8); Carbon Dioxide 25 mEq/L (19-29); Chloride 107 mEq/L (98-109); Globulin 3.5 g/dL (2.4-3.5); Glucose 145 mg/dL (70-99); Osmolality,Calculated 301 (280-300); Potassium 3.7 mEq/L (3.5-4.5); Sodium 143 mEq/L (136-145); Total Protein 7.8 g/dL (6.0-8.3); eGFR For African Americans > 60 (> 60); eGFR For Non-African Americans 55 (> 60)
[2017-11-10 15:47] LABS: Lipase 2002 Units/L (8-78)
[2017-11-10] MEDS ORDERED: 0.9 % Sodium Chloride 1,000 ML IVC SCH (16:00)
[2017-11-10] MEDS ORDERED: *HR* HYDROmorphone (PF) 1 MG/ML SYRINGE IVP ONE (17:00)
[2017-11-10] MEDS: 0.9 % Sodium Chloride 1,000 ML IVC SCH (17:07)
[2017-11-10] MEDS ORDERED: *HR* Morphine 2 MG/ML SYRINGE IVP PRN (20:09)
[2017-11-10] MEDS: *HR* Morphine 2 MG/ML SYRINGE IVP PRN (20:29)
[2017-11-10] MEDS ORDERED: Naloxone 0.4 MG/ML INJ IVP PRN (22:29)
--- NOTE | 2017-11-10 22:33 | Internal Med History&Physical ---
Date of Encounter: 11/10/17 Time of Encounter: 22:33 Assessment and Plan (1) Acute pancreatitis Current visit: Yes Status: Acute complicated biliary hx , now with elevated Bili Conservative management with IVF , NPO, IV morphine Consult GI to assist in further management Qualifiers: Pancreatitis type: unspecified pancreatitis type Acute pancreatitis complication: no infection or necrosis Qualified Code(s): K85.90 - Acute pancreatitis without necrosis or infection, unspecified (2) CAD (coronary artery disease) Current visit: No Status: Chronic s/p stent. Now stable. Continue cardiac meds Qualifiers: Coronary Disease-Associated Artery/Lesion type: [place] artery [place] vs. transplanted heart: [place] heart Associated angina: with unspecified angina Qualified Code(s): I25.119 - Atherosclerotic heart disease of [place] coronary artery with unspecified angina pectoris (3) Hypertension Current visit: No Status: Chronic continue med Qualifiers: Hypertension type: essential hypertension Qualified Code(s): I10 - Essential (primary) hypertension Internal Medicine - H&P: HPI Chief complaint: Abdo pain History of present illness: Mr. Boyd is a 77 year old male who presents with recurrent acute pancreatitis He has a hx of recurrent pancreatitis, over 8-10 x since . He has been seen by Dr Calderón at [facility] where the etiology was thought to be biliary in nature. In 2013, he completed a cholecystectomy and later in 2014, had CBD stenting that is now removed. He denies alcohol of triglyceridemia or idiopathic etiology. In terms of this current episode, he started to experience symptoms at aroun 830 pm last evening with persistent sharp, 10/10 pain in the murali-umbilical area. No radiation. No N/V. Associated with insomnia (with the pain) EKG personally reviewed with rate 63 CT/CT abd pelvis w iv no oral IMPRESSION: 1. Mild stranding surrounding the pancreas with mild pancreatic ductal dilatation. Findings most compatible with acute pancreatitis. Recommend clinical correlation. No organized drainable fluid collections are identified. 2. 5 diverticulosis without evidence for diverticulitis. 3. Severe atherosclerotic disease with mild ectasia of the infrarenal abdominal aorta which is slightly increased when compared with previous exam. Past Med Surg Social Fam HX - Past Medical History Medical history: coronary artery disease, CVA, hypertension, TIA, other Psychiatric history: no psych history - Past Surgical History Surgical History: angioplasty/stent, cholecystectomy, other - Social History Smoking Status: Never smoker Smokeless Tobacco Status: No Alcohol use: none Drug use: none - Family History Father Living Status: Hx Family Cardiac Disorders: Yes (heart attack) Internal Medicine - H&P: Meds Aspirin 81 mg PO QAM 10/19/15 [History] Isosorbide MONOnitrate (24 HR) [Imdur] 30 mg PO QPM 10/19/15 [History] Latanoprost [Xalatan] 1 drop OP HS 10/19/15 [History] Lisinopril [Zestril] 20 mg PO QAM 10/19/15 [History] Metoprolol XL (24 HR) Succ [Toprol XL] 25 mg PO QAM 10/19/15 [History] amLODIPine [Norvasc] 10 mg PO DAILY 09/08/17 [History] 3 Allergy/AdvReac Type Severity Reaction Status Date / Time rosuvastatin [From Crestor] AdvReac Intermediate Cramping Verified 11/10/17 14: 08 of the Muscles All Systems PM: A 10-system review of systems was performed and is negative for pertinent findings except as documented above in the HPI. Review of systems: ROS 14 point review of systems reviewed as best as possible given presentation. Pertinent positive or negative as per HPI or otherwise reviewed as negative - Constitutional Vitals: Temp Pulse Resp BP Pulse Ox 98.7 F 74 14 122/50 93 11/10/17 21:26 11/10/17 21:26 11/10/17 21:26 11/10/17 21:26 11/10/17 21:26 Exam: General - AAO x 3 Psych - Appropriate affect/speech. No agitation Eyes - BOGDAN. Eye lids intact. No scleral icterus Heart - Sinus. RRR. S1 and S2 present. No added HS/murmurs appreciated. No elevated JVD appreciated. Lung - Adequate air entry b/l, No crackles/wheezes appreciated GI - Murali-umbilical tenderness. No guarding or rigidity. No hepatosplenomegaly/ ascites. BS+ - No CVA/suprapubic tenderness or palpable bladder distension Skin - Intact. No rash/petechiae/ecchymosis. Warm extremities MSK - Joints with normal ROM. No joint swellings Internal Med - H&P Results - Labs CBC & Chem 7: 11/10/17 15:06 11/10/17 15:06
[2017-11-10] MEDS ORDERED: D5% in Water 1,000 ML IVC PRN (23:24)
[2017-11-10] MEDS ORDERED: Dextrose Gel 15 GM PO PRN ×2 (23:24)
[2017-11-10] MEDS ORDERED: *HR* Dextrose 50 % in Water (Syg) 50 ML SYRINGE IVP PRN (23:24)
[2017-11-11] MEDS: *HR* Morphine 2 MG/ML SYRINGE IVP PRN ×5 (00:41→18:25)
[2017-11-11] MEDS: 0.9 % Sodium Chloride 1,000 ML IVC SCH ×3 (04:44→21:41)
[2017-11-11] MEDS: *HR* Enoxaparin 40 MG/0.4 ML SYRINGE SQ SCH (05:29)
[2017-11-11 06:57] LABS: Alanine Aminotransferase 12 Units/L (0-55); Albumin/Globulin Ratio 1.1 (1.1-2.2); Alkaline Phosphatase 68 Units/L (38-126); Aspartate Amino Transferase 15 Units/L (5-34); BUN/Creatinine Ratio 18 (6-26); Bilirubin,Direct 0.5 mg/dL (0.0-0.5); Bilirubin,Indirect 0.9 mg/dL (0.0-1.2); Bilirubin,Total 1.4 mg/dL (0.2-1.2); Blood Urea Nitrogen 17 mg/dL (8-26); Calcium 8.8 mg/dL (8.6-10.8); Carbon Dioxide 25 mEq/L (19-29); Chloride 110 mEq/L (98-109); Globulin 3.2 g/dL (2.4-3.5); Glucose 127 mg/dL (70-99); Lipase 547 Units/L (8-78); Osmolality,Calculated 301 (280-300); Sodium 144 mEq/L (136-145); Total Protein 6.6 g/dL (6.0-8.3); Triglycerides 99 mg/dL (< 150); eGFR For African Americans > 60 (> 60); eGFR For Non-African Americans > 60 (> 60)
[2017-11-11 07:00] LABS: Albumin 3.4 g/dL (3.5-5.0); Basophils % 0.2 %; Eosinophils # 0.1 K/mcL (0.0-0.6); Eosinophils % 0.7 %; Hematocrit 44.2 % (37.5-50.1); Immature Granulocytes % 0.4 % (0-4); Lymphocytes % 7.8 %; Mean Corpuscular HGB Conc 33.9 g/dL (31.6-35.5); Mean Corpuscular Volume 91.3 fL (83.0-100.0); Mean Platelet Volume 9.8 fL (9.4-12.4); Monocytes # 1.3 K/mcL (0.0-1.3); Monocytes % 9.8 %; Neutrophils # 10.8 K/mcL (1.6-8.9); Platelet Count 173 K/mcL (140-400); Potassium 4.1 mEq/L (3.5-4.5); Red Blood Count 4.84 M/mcL (4.19-5.50); Red Cell Distribution Width 13.3 % (11.5-14.5); Segmented Neutrophils % 81.1 %
[2017-11-11] MEDS: Aspirin 81 MG TAB.CHEW PO SCH (09:47)
[2017-11-11] MEDS: amLODIPine 5 MG TABLET PO SCH (09:47)
[2017-11-11] MEDS: Lisinopril 20 MG TABLET PO SCH (09:47)
[2017-11-11] MEDS: Metoprolol XL (24 HR) Succ 25 MG TAB.ER.24H PO SCH (09:47)
--- NOTE | 2017-11-11 09:57 | Internal Med Progress Note ---
Date of Encounter: 11/11/17 Time of Encounter: 09:52 - Assessment and plan (1) Acute pancreatitis Current Visit: Yes Status: Acute Assessment and plan: Has had 8-10 episodes in the last 15-20 years. Status post cholecystectomy, CBD stent placement and removal in the past. Presented with left-sided abdominal pain and significantly elevated serum lipase , leukocytosis and acute kidney injury, currently improved. Improving symptoms. Continue supportive care with bowel rest, IV hydration, pain control with when necessary IV morphine and when necessary antiemetics. GI consult. CT abdomen/pelvis showed mild peripancreatic stranding around the head along with mild pancreatic ductal dilatation. Qualifiers: Pancreatitis type: unspecified pancreatitis type Acute pancreatitis complication: no infection or necrosis Qualified Code(s): K85.90 - Acute pancreatitis without necrosis or infection, unspecified (2) Diabetes mellitus Current Visit: Yes Status: Chronic Assessment and plan: Blood sugars noted to be well controlled. Continue Accu-Chek blood glucose monitoring with sliding scale insulin as needed. 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 transplanted heart: [place] heart Associated angina: with unspecified angina Qualified Code(s): I25.119 - Atherosclerotic heart disease of [place] coronary artery with unspecified angina pectoris (4) Hypertension Current Visit: Yes Status: Chronic Assessment and plan: Blood pressure well controlled. Qualifiers: Hypertension type: essential hypertension Qualified Code(s): I10 - Essential (primary) hypertension - Subjective Interval history: Feels better with improving abdominal pain, in left upper area; no nausea, vomiting, fever/chills, diarrhea; no chest pain or dyspnea; - Constitutional Vitals: Temp Pulse Resp BP Pulse Ox 98.6 F 81 14 118/68 96 11/11/17 07:58 11/11/17 07:58 11/11/17 07:58 11/11/17 07:58 11/11/17 07:58 General appearance: Present: A&O X 3, answers questions appropriately - Respiratory Respiratory exam: Present: CTAB. Absent: accessory muscle use, rales, rhonchi, wheezes - Cardiovascular Cardiovascular exam: Present: RRR, +S1, +S2. Absent: diastolic murmur, gallop, rubs, systolic murmur - GI/Abdominal GI/Abdominal exam: Present: normal bowel sounds, soft, no peritoneal signs. Absent: distended, tenderness - Extremities Exam Extremities exam: Present: full ROM, warm, radial pulses palpable and symmetrical. Absent: calf tenderness, cyanotic, pedal edema - Neurological Exam Neurological exam: Present: CN II-XII intact, oriented X3, no focal deficits. Absent: pronater drift, facial droop, speech deficit Internal Medicine: Result - Labs CBC & Chem 7: 11/11/17 05:42 11/11/17 05:42 Labs: Short CBC 11/11/17 Range/Units 05:42 WBC 13.3 H (4.3-11.1) K/mcL Hgb 15.0 D (12.9-16.9) g/dL Hct 44.2 (37.5-50.1) % Plt Count 173 (140-400) K/mcL Neutrophils # 10.8 H (1.6-8.9) K/mcL BMP 11/11/17 05:42 Sodium 144 Potassium 4.1 Chloride 110 H Carbon Dioxide 25 BUN 17 Creatinine 0.95 Glucose 127 H Calcium 8.8 Liver Function 11/11/17 Range/Units 05:42 Total Bilirubin 1.4 H (0.2-1.2) mg/dL Direct Bilirubin 0.5 (0.0-0.5) mg/dL AST 15 (5-34) Units/L ALT 12 (0-55) Units/L Alkaline Phosphatase 68 (38-126) Units/L Albumin 3.4 L D (3.5-5.0) g/dL - Impressions Impressions Chest X-Ray 11/11/17 09:04 IMPRESSION: No acute process. D/ / Michael Calderón MD / Michael Calderón MD Interpreting Provider: Michael Calderón MD Consult Discharge Plan - Plan Referrals: Aguila Bauer Jr, [employer] APPRENTICE [Advanced Practice Nurse] - 11/17/17 10:45 am
--- NOTE | 2017-11-11 12:04 | Gastroenterology Consult Note ---
<Wilmar Calvin - Last Filed: 11/11/17 12:02> Date of Encounter: 11/11/17 Time of Encounter: 10:20 - Assessment and plan (1) Acute pancreatitis Current Visit: Yes Status: Acute Assessment and plan: BISAP score 1. Check IgG4, SHAYE, ionized calcium. Triglycerides normal. Pt denies any ETOH use. Lipase improved to 547 from 2002. Recommend pain control and antiemetics PRN. Recommend increasing IV fluids to 125 ml/hr. Keep NPO for now. Qualifiers: Pancreatitis type: unspecified pancreatitis type Acute pancreatitis complication: no infection or necrosis Qualified Code(s): K85.90 - Acute pancreatitis without necrosis or infection, unspecified - Time Spent With Patient Total time spent is greater than 50% in coordination of care (as documented) at patient's floor/unit and/or counseling patient: GI History of Present Illness - Data of Consult Patient: new to practice Consult date: 11/11/17 Requesting Physician: Leona Curry MD - Consult Narrative Reason for consult: Recurrent pancreatitis History of present illness: Mr. Boyd is a 77 year old male with PMHx of CAD, CVA, HTN, TIA, and recurrent pancreatitis. He has had pancreatitis 8-10 times since 1970s. He has been seen by Dr Calderón at [facility] where the etiology was thought to be biliary in nature. In 2013, he completed a cholecystectomy and later in 2014, had CBD stenting that is now removed. He started to have sharp murali-umbiical pain that started the evening prior to admission. Lipase on admission was 2002 and this AM 547. He was made NPO and started on IV fluids and pain medication. He denies fever, chills, chest pain, shortness of breath, nausea, vomiting, melena, or hematochezia. Procedures: ERCP with CBD stent at [facility] 2014 NSAIDs: ASA Anticoagulation: None Past Med Surg Social Fam HX - Past Medical History Medical history: coronary artery disease, CVA, hypertension, TIA, other Psychiatric history: no psych history - Past Surgical History Surgical History: angioplasty/stent, cholecystectomy, other - Social History Smoking Status: Never smoker Smokeless Tobacco Status: No Alcohol use: none Drug use: none - Family History Father Living Status: Hx Family Cardiac Disorders: Yes (heart attack) - Gastrointestinal Gastrointestinal: Present: as per HPI - Constitutional Constitutional: as per HPI - EENT Eyes: as per HPI Ears: Present: as per HPI Nose, mouth and throat: Present: as per HPI - Cardiovascular Cardiovascular ROS: Present: as per HPI - Respiratory Respiratory IM: Present: as per HPI - Genitourinary Genitourinary: Absent: change in color - Neurological ROS Neurological GI: Present: as per HPI - Hematologic/Lymphatic Hematologic/Lymphatic pediatric: Present: as per HPI - Musculoskeletal Musculoskeletal ROS GI: Present: as per HPI - Integumentary Integumentary GI: Present: as per HPI - Psychiatric ROS Psychiatric GI: Present: as per HPI - Endocrine Endocrine IM: Present: as per HPI - Constitutional Vitals: Temp Pulse Resp BP Pulse Ox 98.6 F 81 14 118/68 93 11/11/17 07:58 11/11/17 07:58 11/11/17 07:58 11/11/17 07:58 11/11/17 10:08 General appearance: Present: cooperative, A&O X 3, no acute distress, answers questions appropriately - Head Head exam: Present: atraumatic, normocephalic - Eye Eye exam: Present: normal appearance, sclera anicteric - ENT ENT exam: Present: mucous membranes dry - Neck Neck exam general surgery: Present: normal inspection, trachea midline - Respiratory Respiratory exam: Present: CTAB. Absent: rales, rhonchi - Cardiovascular Cardiovascular exam: Present: RRR, +S1, +S2 - GI/Abdominal GI/Abdominal exam: Present: soft, no peritoneal signs. Absent: distended, firm , guarding, tenderness - Rectal Rectal exam: Present: deferred - Extremities Exam Extremities exam: Present: warm - Neurological Exam Neurological exam: Present: no focal deficits - Psychiatric Psychiatric exam: Present: normal affect, normal mood - Skin Skin exam: Present: dry, intact, normal color, warm Results - Labs CBC & Chem 7: 11/11/17 05:42 11/11/17 05:42 Labs: Last Result Calcium 8.8 mg/dL (8.6-10.8) 11/11/17 05:42 Troponin I 0.01 ng/mL (0-0.03) 11/10/17 15:06 Triglycerides 99 mg/dL (< 150) 11/11/17 05:42 Entire Visit Hgb 15.0 g/dL (12.9-16.9) D 11/11/17 05:42 Hct 44.2 % (37.5-50.1) 11/11/17 05:42 Total Bilirubin 1.4 mg/dL (0.2-1.2) H 11/11/17 05:42 AST 15 Units/L (5-34) 11/11/17 05:42 ALT 12 Units/L (0-55) 11/11/17 05:42 Lipase 547 Units/L (8-78) H 11/11/17 05:42 - Impressions Impressions Chest X-Ray 11/11/17 09:04 IMPRESSION: No acute process. D/ / Michael Calderón MD / Michael Calderón MD Interpreting Provider: Michael Calderón MD Consult Discharge Plan - Plan Referrals: Aguila Bauer Jr, LEASE PURCHASE TRUCK DRIVER [Advanced Practice Nurse] - 11/17/17 10:45 am <Slime Rodriguez - Last Filed: 11/11/17 18:03> Date of Encounter: 11/11/17 Time of Encounter: 14:00 - Time Spent With Patient Total time spent is greater than 50% in coordination of care (as documented) at patient's floor/unit and/or counseling patient: GI History of Present Illness - Data of Consult Requesting Physician: Leona Curry MD - Consult Narrative History of present illness: Mr. Boyd is a 77 year old male - Constitutional Vitals: Temp Pulse Resp BP Pulse Ox 99.3 F 75 16 122/65 96 11/11/17 15:02 11/11/17 15:02 11/11/17 15:02 11/11/17 15:02 11/11/17 15:02 Results - Labs CBC & Chem 7: 11/11/17 05:42 11/11/17 05:42 Labs: Last Result Calcium 8.8 mg/dL (8.6-10.8) 11/11/17 05:42 Troponin I 0.01 ng/mL (0-0.03) 11/10/17 15:06 Triglycerides 99 mg/dL (< 150) 11/11/17 05:42 Entire Visit Hgb 15.0 g/dL (12.9-16.9) D 11/11/17 05:42 Hct 44.2 % (37.5-50.1) 11/11/17 05:42 Total Bilirubin 1.4 mg/dL (0.2-1.2) H 11/11/17 05:42 AST 15 Units/L (5-34) 11/11/17 05:42 ALT 12 Units/L (0-55) 11/11/17 05:42 Lipase 547 Units/L (8-78) H 11/11/17 05:42 - Impressions Impressions Chest X-Ray 11/11/17 09:04 IMPRESSION: No acute process. D/ / Michael Calderón MD / Michael Calderón MD Interpreting Provider: Michael Calderón MD - Attending Attestation I examined this patient and my medical decision-making was reviewed with the Resident Physician. I agree with the documented findings, disposition and treatment plan as described except to the extent set forth below. Patient with recurrent pancreatitis every on average 3 years since the 70s. GB is already out. LFTs are normal. Continue IV fluid start clear liquid once pain is better
--- NOTE | 2017-11-11 16:38 | Electrocardiograph Report ---
[address] [place], [place] [address] Test Date: 2017-11-10 Pat Name: Luis Angel Boyd Department: 104 Room: 3A Gender: M Merchandise Presentation Manager: : 1940 Requested By: Harry John Order Number: [id number] Reading MD: Joyce Zaman Measurements Intervals [place] Rate: 63 P: 53 CA: 173 QRS: -30 QRSD: 96 T: 28 QT: 403 QTc: 410 Interpretive Statements SINUS RHYTHM BORDERLINE LEFT AXIS DEVIATION Electronically Signed On 11-11-2017 16:35:59 EST by Joyce Zaman
[2017-11-11] MEDS: Isosorbide MONOnitrate (24 HR) 30 MG TAB.ER.24H PO SCH (18:24)
[2017-11-11] MEDS: Latanoprost 2.5 ML BOTTLE BOTH EYES SCH (21:38)
[2017-11-12] MEDS: *HR* Morphine 2 MG/ML SYRINGE IVP PRN ×2 (02:30→23:19)
[2017-11-12 05:04] LABS: Basophils # 0.1 K/mcL (0.0-0.2); Basophils % 0.5 %; Eosinophils # 0.4 K/mcL (0.0-0.6); Eosinophils % 3.7 %; Hematocrit 39.8 % (37.5-50.1); Immature Granulocytes % 0.3 % (0-4); Lymphocytes # 1.1 K/mcL (0.6-4.6); Lymphocytes % 11.2 %; Mean Corpuscular HGB Conc 33.2 g/dL (31.6-35.5); Mean Corpuscular Volume 93.4 fL (83.0-100.0); Mean Platelet Volume 9.8 fL (9.4-12.4); Monocytes % 10.7 %; Platelet Count 153 K/mcL (140-400); Red Blood Count 4.26 M/mcL (4.19-5.50); Red Cell Distribution Width 13.2 % (11.5-14.5); Segmented Neutrophils % 73.6 %
[2017-11-12 05:12] LABS: Hemoglobin 13.2 g/dL (12.9-16.9)
[2017-11-12 05:22] LABS: Alanine Aminotransferase 9 Units/L (0-55); Alkaline Phosphatase 67 Units/L (38-126); Aspartate Amino Transferase 10 Units/L (5-34); BUN/Creatinine Ratio 23 (6-26); Bilirubin,Total 1.6 mg/dL (0.2-1.2); Blood Urea Nitrogen 21 mg/dL (8-26); Calcium 8.4 mg/dL (8.6-10.8); Carbon Dioxide 25 mEq/L (19-29); Chloride 110 mEq/L (98-109); Globulin 2.9 g/dL (2.4-3.5); Glucose 92 mg/dL (70-99); Osmolality,Calculated 297 (280-300); Potassium 3.9 mEq/L (3.5-4.5); Sodium 142 mEq/L (136-145); Total Protein 5.9 g/dL (6.0-8.3); eGFR For African Americans > 60 (> 60); eGFR For Non-African Americans > 60 (> 60)
[2017-11-12 05:29] LABS: Alanine Aminotransferase 9 Units/L (0-55); Alkaline Phosphatase 64 Units/L (38-126); Aspartate Amino Transferase 12 Units/L (5-34); BUN/Creatinine Ratio 24 (6-26); Bilirubin,Direct 0.7 mg/dL (0.0-0.5); Bilirubin,Indirect 0.9 mg/dL (0.0-1.2); Bilirubin,Total 1.6 mg/dL (0.2-1.2); Blood Urea Nitrogen 21 mg/dL (8-26); Calcium 8.4 mg/dL (8.6-10.8); Carbon Dioxide 24 mEq/L (19-29); Chloride 111 mEq/L (98-109); Globulin 2.9 g/dL (2.4-3.5); Glucose 92 mg/dL (70-99); Lipase 55 Units/L (8-78); Osmolality,Calculated 297 (280-300); Potassium 3.8 mEq/L (3.5-4.5); Sodium 142 mEq/L (136-145); Total Protein 5.9 g/dL (6.0-8.3); eGFR For African Americans > 60 (> 60); eGFR For Non-African Americans > 60 (> 60)
[2017-11-12] MEDS: *HR* Enoxaparin 40 MG/0.4 ML SYRINGE SQ SCH (05:41)
[2017-11-12] MEDS: 0.9 % Sodium Chloride 1,000 ML IVC SCH (05:41)
[2017-11-12 08:13] LABS: VBG Ionized Calcium 1.19 mmol/L (1.15-1.35); VBG PH 7.36 pH Units (7.32-7.42)
[2017-11-12] MEDS: Lisinopril 20 MG TABLET PO SCH (10:12)
[2017-11-12] MEDS: Metoprolol XL (24 HR) Succ 25 MG TAB.ER.24H PO SCH (10:12)
[2017-11-12] MEDS: amLODIPine 5 MG TABLET PO SCH (10:12)
[2017-11-12] MEDS: Aspirin 81 MG TAB.CHEW PO SCH (10:12)
--- NOTE | 2017-11-12 12:17 | Internal Med Progress Note ---
Date of Encounter: 11/12/17 Time of Encounter: 12:14 - Assessment and plan (1) Acute pancreatitis Current Visit: Yes Status: Acute Assessment and plan: Has had 8-10 episodes in the last 15-20 years. Status post cholecystectomy, CBD stent placement and removal in the past. CT abdomen/pelvis showed mild peripancreatic stranding around the head along with mild pancreatic ductal dilatation. Improved leukocytosis, serum lipase. Improved abdominal pain. Start clear liquid diet, advance as tolerated. Discontinue IV hydration. GI consult appreciated. Continue pain control with when necessary IV morphine and when necessary antiemetics. Qualifiers: Pancreatitis type: unspecified pancreatitis type Acute pancreatitis complication: no infection or necrosis Qualified Code(s): K85.90 - Acute pancreatitis without necrosis or infection, unspecified (2) Diabetes mellitus Current Visit: Yes Status: Chronic Assessment and plan: Blood sugars noted to be well controlled. Continue Accu-Chek blood glucose monitoring with sliding scale insulin as needed. Qualifiers: Diabetes mellitus type: type 2 Diabetes mellitus complication status: with unspecified complications Diabetes mellitus long term care pharmacist insulin use: without long term care pharmacist use Qualified Code(s): E11.8 - Type 2 diabetes mellitus with unspecified complications (3) CAD (coronary artery disease) Current Visit: Yes Status: Chronic Qualifiers: Coronary Disease-Associated Artery/Lesion type: [place] artery [place] vs. transplanted heart: [place] heart Associated angina: with unspecified angina Qualified Code(s): I25.119 - Atherosclerotic heart disease of [place] coronary artery with unspecified angina pectoris (4) Hypertension Current Visit: Yes Status: Chronic Assessment and plan: Blood pressure well controlled. Qualifiers: Hypertension type: essential hypertension Qualified Code(s): I10 - Essential (primary) hypertension - Subjective Interval history: Reports feeling much better, with improved abdominal pain; feels hungry and happy to get clear liquids! No fever/chills; - Constitutional Vitals: Temp Pulse Resp BP Pulse Ox 99.6 F 81 16 139/72 95 11/12/17 11:46 11/12/17 11:46 11/12/17 11:46 11/12/17 11:46 11/12/17 11:46 General appearance: Present: A&O X 3, answers questions appropriately - Respiratory Respiratory exam: Present: CTAB. Absent: accessory muscle use, rales, rhonchi, wheezes - Cardiovascular Cardiovascular exam: Present: RRR, +S1, +S2. Absent: diastolic murmur, gallop, rubs, systolic murmur - GI/Abdominal GI/Abdominal exam: Present: normal bowel sounds, soft, no peritoneal signs. Absent: distended, tenderness Internal Medicine: Result - Labs CBC & Chem 7: 11/12/17 04:25 11/12/17 04:25 Labs: Short CBC 11/12/17 Range/Units 04:25 WBC 9.5 (4.3-11.1) K/mcL Hgb 13.2 D (12.9-16.9) g/dL Hct 39.8 (37.5-50.1) % Plt Count 153 (140-400) K/mcL Neutrophils # 7.0 (1.6-8.9) K/mcL BMP 11/12/17 11/12/17 04:25 04:25 Sodium 142 142 Potassium 3.8 3.9 Chloride 111 H 110 H Carbon Dioxide 24 25 BUN 21 21 Creatinine 0.88 0.90 Glucose 92 92 Calcium 8.4 L 8.4 L Liver Function 11/12/17 11/12/17 Range/Units 04:25 04:25 Total Bilirubin 1.6 H 1.6 H (0.2-1.2) mg/dL Direct Bilirubin 0.7 H (0.0-0.5) mg/dL AST 12 10 (5-34) Units/L ALT 9 9 (0-55) Units/L Alkaline Phosphatase 64 67 (38-126) Units/L Albumin 3.0 L 3.0 L (3.5-5.0) g/dL Consult Discharge Plan - Plan Referrals: Aguila Bauer Jr, SENIOR OFFICE ASSISTANT [Advanced Practice Nurse] - 11/17/17 10:45 am
[2017-11-12] MEDS: Isosorbide MONOnitrate (24 HR) 30 MG TAB.ER.24H PO SCH (17:19)
[2017-11-12] MEDS: Latanoprost 2.5 ML BOTTLE BOTH EYES SCH (20:40)
[2017-11-13] MEDS: *HR* Enoxaparin 40 MG/0.4 ML SYRINGE SQ SCH (05:45)
[2017-11-13 06:24] LABS: Alanine Aminotransferase 10 Units/L (0-55); Albumin 3.1 g/dL (3.5-5.0); Alkaline Phosphatase 62 Units/L (38-126); Aspartate Amino Transferase 13 Units/L (5-34); BUN/Creatinine Ratio 19 (6-26); Bilirubin,Direct 0.6 mg/dL (0.0-0.5); Bilirubin,Indirect 0.8 mg/dL (0.0-1.2); Bilirubin,Total 1.4 mg/dL (0.2-1.2); Blood Urea Nitrogen 16 mg/dL (8-26); Calcium 8.8 mg/dL (8.6-10.8); Carbon Dioxide 24 mEq/L (19-29); Chloride 106 mEq/L (98-109); Globulin 3.1 g/dL (2.4-3.5); Glucose 97 mg/dL (70-99); Lipase 25 Units/L (8-78); Osmolality,Calculated 285 (280-300); Potassium 3.6 mEq/L (3.5-4.5); Sodium 137 mEq/L (136-145); Total Protein 6.2 g/dL (6.0-8.3); eGFR For African Americans > 60 (> 60); eGFR For Non-African Americans > 60 (> 60)
[2017-11-13 06:33] LABS: Basophils % 0.5 %; Eosinophils # 0.4 K/mcL (0.0-0.6); Eosinophils % 5.4 %; Hematocrit 39.5 % (37.5-50.1); Hemoglobin 13.6 g/dL (12.9-16.9); Immature Granulocytes % 0.2 % (0-4); Lymphocytes # 1.3 K/mcL (0.6-4.6); Lymphocytes % 15.8 %; Mean Corpuscular HGB Conc 34.4 g/dL (31.6-35.5); Mean Corpuscular Hemoglobin 30.8 pg (28.0-33.3); Mean Corpuscular Volume 89.6 fL (83.0-100.0); Mean Platelet Volume 9.8 fL (9.4-12.4); Neutrophils # 5.4 K/mcL (1.6-8.9); Platelet Count 177 K/mcL (140-400); Red Blood Count 4.41 M/mcL (4.19-5.50); Red Cell Distribution Width 12.4 % (11.5-14.5); Segmented Neutrophils % 66.1 %
[2017-11-13] MEDS: Metoprolol XL (24 HR) Succ 25 MG TAB.ER.24H PO SCH (08:36)
[2017-11-13] MEDS: amLODIPine 5 MG TABLET PO SCH (08:36)
[2017-11-13] MEDS: Lisinopril 20 MG TABLET PO SCH (08:36)
[2017-11-13] MEDS: Aspirin 81 MG TAB.CHEW PO SCH (08:36)
[2017-11-13 10:52] VITALS: BP 132/63
--- NOTE | 2017-11-13 11:10 | Discharge Summary ---
Date of Encounter: 11/13/17 Time of Encounter: 11:08 - Discharge Diagnosis (1) Acute pancreatitis Priority: Primary Status: Acute Qualifiers: Pancreatitis type: unspecified pancreatitis type Acute pancreatitis complication: no infection or necrosis Qualified Code(s): K85.90 - Acute pancreatitis without necrosis or infection, unspecified (2) Diabetes mellitus Priority: Secondary Status: Chronic Qualifiers: Diabetes mellitus type: type 2 Diabetes mellitus complication status: with unspecified complications Diabetes mellitus poultry hanger insulin use: without nursing home use Qualified Code(s): E11.8 - Type 2 diabetes mellitus with unspecified complications (3) CAD (coronary artery disease) Priority: Secondary Status: Chronic Qualifiers: Coronary Disease-Associated Artery/Lesion type: [place] artery [place] vs. transplanted heart: [place] heart Associated angina: with unspecified angina Qualified Code(s): I25.119 - Atherosclerotic heart disease of [place] coronary artery with unspecified angina pectoris (4) Hypertension Priority: Secondary Status: Chronic Qualifiers: Hypertension type: essential hypertension Qualified Code(s): I10 - Essential (primary) hypertension - Discharge Medications Prescriptions: Docusate [Colace] 100 mg PO BID #30 capsule HYDROcodone/Acet 5/325 mg [Hico 5-325 mg] 1 tab PO Q6H PRN #10 tab PRN Reason: Pain Home Medications: Aspirin 81 mg PO QAM 10/19/15 [History] Isosorbide MONOnitrate (24 HR) [Imdur] 30 mg PO QPM 10/19/15 [History] Latanoprost [Xalatan] 1 drop OP HS 10/19/15 [History] Lisinopril [Zestril] 20 mg PO QAM 10/19/15 [History] Metoprolol XL (24 HR) Succ [Toprol XL] 25 mg PO QAM 10/19/15 [History] amLODIPine [Norvasc] 10 mg PO DAILY 09/08/17 [History] Docusate [Colace] 100 mg PO BID #30 capsule 11/13/17 [Rx] HYDROcodone/Acet 5/325 mg [Hico 5-325 mg] 1 tab PO Q6H PRN #10 tab 11/13/17 [Rx ] Allergies/Adverse Reactions: 3 Allergy/AdvReac Type Severity Reaction Status Date / Time rosuvastatin [From Crestor] AdvReac Intermediate Cramping Verified 11/10/17 14: 08 of the Muscles Date of admission: 11/10/17 22:29 Primary care physician: Adiel Valencia MD Consults: 11/10/17 22:31 Consult to Gastroenterology [CONS] Routine Consulting Provider: Brad Washington Reason for Consult: recurrent pancreatitis, elevated bili Call Completed: No Discharging clinician: Leona Curry Anticipated date of discharge: 11/13/17 - Patient Status Disposition: Home, Self-Care Condition: Good Functional capacity at discharge: independent ambulation Overall status at discharge: patient is progressing back to baseline - Discharge Instructions Follow Up With: Aguila Bauer Jr, ELECTRIC UTILITY LINEWORKER [Advanced Practice Nurse] - 11/17/17 10:45 am - Diet and Activity Activity: resume usual activities as tolerated Diet: diabetic diet, low fat, low cholesterol, low salt diet Hospital course: Mr. Boyd is a 77 year old male with the above medical problems who was admitted with acute abdominal pain. CT abdomen/pelvis showed changes suggestive of acute pancreatitis. He was started on medical management with bowel rest, aggressive IV hydration, pain control with when necessary IV morphine and when necessary antiemetics. His symptoms gradually improved and he is currently able to tolerate a low-fat oral diet, serum lipase is normal. He was evaluated by gastroenterology and is medically stable for discharge with outpatient follow-up. - Time Spent with Patient Total time spent providing and/or coordinating discharge services: Greater than 30 minutes (40 min) - Constitutional Vitals: Temp Pulse Resp BP Pulse Ox 98.2 F 77 16 132/63 97 11/13/17 10:51 11/13/17 10:51 11/13/17 10:51 11/13/17 10:51 11/13/17 10:51 General appearance: Present: A&O X 3, answers questions appropriately - Cardiovascular Cardiovascular exam: Present: RRR, +S1, +S2. Absent: diastolic murmur, gallop, rubs, systolic murmur
[2017-11-15 07:45] LABS: ANA IgG by ELISA NONE DETECTED (None Detected); Immunoglobulin G Subclass 4 9 mg/dL (1-123)
== END 2017-11-13 14:40 | disposition home or self-care (01) | DRG 439 ==
LOC: 3ANU 14:01 → EMEROO 14:01 → 3ANU 19:45
PROVIDERS: ADMIT Internal Medicine Hematology & Oncology; ATTEND Internal Medicine

== ENCOUNTER 2020-08-29 10:41 | Inpatient (IN) ==
[2020-08-29] MEDS ORDERED: Aspirin 81 MG TAB.CHEW PO ONE (11:01)
[2020-08-29] MEDS ORDERED: Nitroglycerin 0.4 MG TAB.SUBL SL PRN (11:01)
[2020-08-29 11:11] LABS: Basophils % 0.6 %; Eosinophils # 0.3 K/mcL (0.0-0.6); Eosinophils % 3.6 %; Hematocrit 47.2 % (37.5-50.1); Hemoglobin 16.4 g/dL (12.9-16.9); Immature Granulocytes % 0.1 % (0-4); Lymphocytes # 1.2 K/mcL (0.6-4.6); Lymphocytes % 16.9 %; Mean Corpuscular HGB Conc 34.7 g/dL (31.6-35.5); Mean Corpuscular Hemoglobin 31.6 pg (28.0-33.3); Mean Corpuscular Volume 90.9 fL (83.0-100.0); Mean Platelet Volume 9.4 fL (9.4-12.4); Monocytes # 0.8 K/mcL (0.0-1.3); Monocytes % 11.9 %; Neutrophils # 4.7 K/mcL (1.6-8.9); Platelet Count 201 K/mcL (140-400); Red Blood Count 5.19 M/mcL (4.19-5.50); Red Cell Distribution Width 12.7 % (11.5-14.5); Segmented Neutrophils % 66.9 %
[2020-08-29 11:38] LABS: BUN/Creatinine Ratio 15 (6-26); Blood Urea Nitrogen 15 mg/dL (8-23); Calcium 9.5 mg/dL (8.6-10.3); Carbon Dioxide 23 mEq/L (23-29); Chloride 106 mEq/L (98-107); Glucose 118 mg/dL (70-105); Osmolality,Calculated 288 (280-300); Potassium 3.9 mEq/L (3.5-5.1); Sodium 138 mEq/L (136-145); Troponin I 0.16 ng/mL (< 0.04); eGFR For African Americans > 60 (> 60); eGFR For Non-African Americans > 60 (> 60)
[2020-08-29] MEDS ORDERED: *HR* Heparin 5,000 UNIT/ML VIAL IVP PRN ×2 (11:42)
[2020-08-29] MEDS ORDERED: *HR* Heparin 5,000 UNIT/ML VIAL IVP ONE (11:42)
[2020-08-29 12:05] LABS: Heparin anti-factor XA UFH < 0.04 IU/mL (0.30-0.70)
[2020-08-29 12:06] LABS: INR 1.3; Prothrombin Time 14.4 Seconds (9.4-12.1)
[2020-08-29] MEDS: Heparin 25,000UNIT/250ML 1/2NS 25,000 UNIT/250 ML IV.SOLN IVC SCH (12:10)
[2020-08-29] MEDS ORDERED: Naloxone 0.4 MG/ML INJ IVP PRN (13:05)
[2020-08-29] MEDS ORDERED: Perflutren Lipid Microsphere 1.3 ML in 0.9 % Sodium Chloride 8.7 ML IVP PRN (13:12)
[2020-08-29 18:19] LABS: Estimated Average Glucose 120 mg/dl
[2020-08-29 18:25] LABS: Chol/HDL Ratio 4.3 (0-4.9); Magnesium 2.2 mg/dL (1.6-2.6); Phosphorous 2.3 mg/dL (2.7-4.5)
[2020-08-29 18:29] LABS: Troponin I 0.86 ng/mL (< 0.04)
[2020-08-29 18:42] LABS: Thyroid Stimulating Hormone 1.435 mcIU/mL (0.340-5.600)
[2020-08-29] MEDS ORDERED: Morphine Sulfate 2 MG/ML SYRINGE IVP PRN (21:18)
[2020-08-30 00:32] LABS: Basophils # 0.1 K/mcL (0.0-0.2); Basophils % 0.6 %; Eosinophils # 0.3 K/mcL (0.0-0.6); Eosinophils % 3.5 %; Immature Granulocytes % 0.3 % (0-4); Lymphocytes # 1.8 K/mcL (0.6-4.6); Lymphocytes % 22.6 %; Mean Corpuscular HGB Conc 34.3 g/dL (31.6-35.5); Mean Corpuscular Hemoglobin 31.4 pg (28.0-33.3); Mean Corpuscular Volume 91.7 fL (83.0-100.0); Mean Platelet Volume 9.9 fL (9.4-12.4); Monocytes # 0.8 K/mcL (0.0-1.3); Monocytes % 10.9 %; Neutrophils # 4.8 K/mcL (1.6-8.9); Platelet Count 184 K/mcL (140-400); Red Blood Count 4.58 M/mcL (4.19-5.50); Red Cell Distribution Width 12.9 % (11.5-14.5); Segmented Neutrophils % 62.1 %; White Blood Count 7.7 K/mcL (4.3-11.1)
[2020-08-30 00:34] LABS: Hemoglobin 14.4 g/dL (12.9-16.9)
[2020-08-30 01:00] LABS: BUN/Creatinine Ratio 19 (6-26); Blood Urea Nitrogen 19 mg/dL (8-23); Calcium 8.9 mg/dL (8.6-10.3); Carbon Dioxide 23 mEq/L (23-29); Chloride 108 mEq/L (98-107); Glucose 109 mg/dL (70-105); Osmolality,Calculated 293 (280-300); Potassium 3.9 mEq/L (3.5-5.1); Sodium 140 mEq/L (136-145); eGFR For African Americans > 60 (> 60); eGFR For Non-African Americans > 60 (> 60)
[2020-08-30] MEDS ORDERED: Acetaminophen 325 MG TABLET PO ONE (01:54)
[2020-08-30] MEDS: lisinopriL 20 MG TABLET PO SCH (09:36)
[2020-08-30] MEDS: Metoprolol XL (24 HR) Succ 25 MG TAB.ER.24H PO SCH (09:36)
[2020-08-30] MEDS: amLODIPine 5 MG TABLET PO SCH (09:36)
[2020-08-30] MEDS: Aspirin 81 MG TAB.CHEW PO SCH (09:36)
[2020-08-30] MEDS: Latanoprost 2.5 ML BOTTLE BOTH EYES SCH (09:37)
[2020-08-30] MEDS: Isosorbide MONOnitrate (24 HR) 30 MG TAB.ER.24H PO SCH (09:37)
[2020-08-30] MEDS ORDERED: Perflutren Lipid Microsphere 1.3 ML in 0.9 % Sodium Chloride 8.7 ML IVP PRN (10:32)
[2020-08-30] MEDS: Heparin 25,000UNIT/250ML 1/2NS 25,000 UNIT/250 ML IV.SOLN IVC SCH (11:35)
[2020-08-30] MEDS ORDERED: 0.9 % Sodium Chloride 1,000 ML ONE ×2 (12:44→13:41)
[2020-08-30] MEDS ORDERED: *HR* Heparin 10,000 UNIT/10 ML VIAL ONE (12:44)
[2020-08-30] MEDS ORDERED: Heparin 1,000 UNITS/500 mL 500 ML ONE ×2 (12:44→15:03)
[2020-08-30] MEDS ORDERED: ISOVUE-370 200 ML INFUS..BTL ONE ×2 (12:45→15:00)
[2020-08-30] MEDS ORDERED: Nitroglycerin 1,000 MCG/10 ML VIAL IV ONE (12:45)
[2020-08-30] MEDS ORDERED: *HR* Midazolam HCl 2 MG/2 ML VIAL ONE (13:52)
[2020-08-30] MEDS ORDERED: *HR* FentaNYL (PF) 100 MCG/2 ML VIAL ONE (13:52)
[2020-08-30] MEDS ORDERED: *HR* Ticagrelor 90 MG TABLET ONE (14:36)
[2020-08-30] MEDS: 0.9 % Sodium Chloride 1,000 ML IVC SCH (16:21)
[2020-08-31] MEDS: 0.9 % Sodium Chloride 1,000 ML IVC SCH (00:28)
[2020-08-31 04:58] LABS: Hemoglobin 14.9 g/dL (12.9-16.9)
[2020-08-31 05:15] LABS: BUN/Creatinine Ratio 16 (6-26); Blood Urea Nitrogen 16 mg/dL (8-23); Calcium 9.1 mg/dL (8.6-10.3); Carbon Dioxide 24 mEq/L (23-29); Chloride 108 mEq/L (98-107); Glucose 104 mg/dL (70-105); Osmolality,Calculated 289 (280-300); Sodium 139 mEq/L (136-145); eGFR For African Americans > 60 (> 60); eGFR For Non-African Americans > 60 (> 60)
[2020-08-31 07:29] VITALS: BP 145/73
[2020-08-31] MEDS: Aspirin 81 MG TAB.CHEW PO SCH (08:45)
[2020-08-31] MEDS: Isosorbide MONOnitrate (24 HR) 30 MG TAB.ER.24H PO SCH (08:45)
[2020-08-31] MEDS: lisinopriL 20 MG TABLET PO SCH (08:45)
[2020-08-31] MEDS: amLODIPine 5 MG TABLET PO SCH (08:45)
[2020-08-31] MEDS: Metoprolol XL (24 HR) Succ 25 MG TAB.ER.24H PO SCH (08:45)
[2020-08-31] MEDS: Latanoprost 2.5 ML BOTTLE BOTH EYES SCH (08:46)
[2020-08-31] MEDS ORDERED: *HR* Ticagrelor 90 MG TABLET PO SCH (09:00)
== END 2020-08-31 10:41 | disposition home or self-care (01) | DRG 247 ==
LOC: EMEROOARM 10:41 → 3BNU 10:41 → SUATTDRO 12:56 → 3BNU 14:08 → SUATTDRO 08-30 13:28
PROVIDERS: ADMIT Internal Medicine; ATTEND Internal Medicine

== ENCOUNTER 2020-12-10 07:45 | Observation (INO) ==
[2020-12-10] MEDS ORDERED: Isovue-370 500 ML BOTTLE IVP ONE (08:04)
[2020-12-10 08:16] LABS: Hematocrit 44.8 % (37.5-50.1); Hemoglobin 15.4 g/dL (12.9-16.9); Mean Corpuscular HGB Conc 34.4 g/dL (31.6-35.5); Mean Corpuscular Volume 90.1 fL (83.0-100.0); Mean Platelet Volume 9.1 fL (9.4-12.4); Platelet Count 176 K/mcL (140-400); Red Blood Count 4.97 M/mcL (4.19-5.50); Red Cell Distribution Width 12.5 % (11.5-14.5); White Blood Count 6.8 K/mcL (4.3-11.1)
[2020-12-10 08:28] LABS: INR 1.3
[2020-12-10 08:31] LABS: Activated Partial Thrombo Time 33.9 Seconds (26.0-36.0)
[2020-12-10 09:09] LABS: Bilirubin,Urine Negative (Negative); Blood,Urine Negative (Negative); Clarity,Urine Clear (Clear); Color,Urine Colorless (Yellow); Glucose,Urine (UA) Normal (Normal); Ketones,Urine Negative (Negative); Leukocyte Esterase,Urine Negative (Negative); Nitrite,Urine Negative (Negative); PH,Urine 6.5 pH Units (5.0-8.0); Protein,Urine Negative (Neg-Trace); Specific Gravity,Urine > 1.030 (1.010-1.025); Urobilinogen,Urine Normal (Normal)
[2020-12-10 09:37] LABS: Troponin I < 0.03 ng/mL (< 0.04)
[2020-12-10 09:49] LABS: BUN/Creatinine Ratio 13 (6-26); Blood Urea Nitrogen 13 mg/dL (8-23); Carbon Dioxide 22 mEq/L (23-29); Chloride 108 mEq/L (98-107); Glucose 126 mg/dL (70-105); Osmolality,Calculated 290 (280-300); Sodium 139 mEq/L (136-145); eGFR For African Americans > 60 (> 60); eGFR For Non-African Americans > 60 (> 60)
[2020-12-10] MEDS ORDERED: Naloxone 0.4 MG/ML INJ IVP PRN (10:51)
[2020-12-10] MEDS ORDERED: Ondansetron 4 MG/2 ML VIAL IVP PRN (10:51)
[2020-12-10] MEDS ORDERED: Perflutren Lipid Microsphere 1.3 ML in 0.9 % Sodium Chloride 8.7 ML IVP PRN (10:52)
[2020-12-10] MEDS: *HR* Heparin 5,000 UNIT/ML VIAL SQ SCH (17:39)
[2020-12-10] MEDS ORDERED: Melatonin 3 MG TABLET PO PRN (22:40)
[2020-12-11 02:12] LABS: INR 1.4; Prothrombin Time 15.7 Seconds (9.4-12.1)
[2020-12-11 02:29] LABS: Alanine Aminotransferase 11 Units/L (7-52); Albumin 3.8 g/dL (3.5-5.7); Albumin/Globulin Ratio 1.8 (1.1-2.2); Alkaline Phosphatase 60 Units/L (34-104); Aspartate Amino Transferase 12 Units/L (13-39); BUN/Creatinine Ratio 17 (6-26); Bilirubin,Total 0.7 mg/dL (0.3-1.0); Blood Urea Nitrogen 17 mg/dL (8-23); Calcium 9.2 mg/dL (8.6-10.3); Carbon Dioxide 24 mEq/L (23-29); Chloride 108 mEq/L (98-107); Chol/HDL Ratio 5.3 (0-4.9); Cholesterol 139 mg/dL (< 200); Globulin 2.1 g/dL (2.4-3.5); Glucose 116 mg/dL (70-105); HDL Cholesterol 26 mg/dL (40-59); LDL Cholesterol,Calculated 52 mg/dL (< 100); Osmolality,Calculated 293 (280-300); Potassium 4.1 mEq/L (3.5-5.1); Sodium 140 mEq/L (136-145); Total Protein 5.9 g/dL (6.4-8.9); Triglycerides 304 mg/dL (< 150); Troponin I < 0.03 ng/mL (< 0.04); eGFR For African Americans > 60 (> 60); eGFR For Non-African Americans > 60 (> 60)
[2020-12-11 04:10] LABS: Estimated Average Glucose 128 mg/dl; Hemoglobin A1C 6.1 %
[2020-12-11] MEDS: *HR* Heparin 5,000 UNIT/ML VIAL SQ SCH (05:05)
[2020-12-11] MEDS ORDERED: Aspirin 81 MG TAB.CHEW PO SCH (09:00)
[2020-12-11] MEDS ORDERED: amLODIPine 5 MG TABLET PO SCH (09:00)
[2020-12-11] MEDS ORDERED: Isosorbide MONOnitrate (24 HR) 30 MG TAB.ER.24H PO SCH (09:00)
[2020-12-11] MEDS ORDERED: Latanoprost 2.5 ML BOTTLE BOTH EYES SCH (09:00)
[2020-12-11] MEDS ORDERED: lisinopriL 20 MG TABLET PO SCH (09:00)
[2020-12-11] MEDS ORDERED: Metoprolol XL (24 HR) Succ 25 MG TAB.ER.24H PO SCH (09:00)
[2020-12-11 15:34] VITALS: BP 153/81
== END 2020-12-11 16:49 | disposition home or self-care (01) ==
LOC: CDU 07:45 → EMEROOARM 07:45 → SUATTDRO 10:31 → CDU 10:36
PROVIDERS: ADMIT Internal Medicine; ATTEND Family Medicine

== ENCOUNTER 2022-08-05 16:05 | Inpatient (IN) ==
[2022-08-05] MEDS ORDERED: Ondansetron 4 MG/2 ML VIAL IVP ONE (16:40)
[2022-08-05] MEDS ORDERED: Morphine Sulfate 2 MG/ML SYRINGE IVP ONE ×2 (16:40→20:11)
[2022-08-05] MEDS ORDERED: Iopamidol - 370 500 ML MLS IVP ONE (16:42)
[2022-08-05 17:27] LABS: Basophils # 0.1 K/mcL (0.0-0.2); Basophils % 0.4 %; Eosinophils # 0.2 K/mcL (0.0-0.6); Eosinophils % 0.9 %; Hematocrit 42.9 % (37.5-50.1); Hemoglobin 15.3 g/dL (12.9-16.9); Immature Granulocytes % 0.5 % (0-4); Lymphocytes # 1.5 K/mcL (0.6-4.6); Lymphocytes % 8.9 %; Mean Corpuscular HGB Conc 35.7 g/dL (31.6-35.5); Mean Corpuscular Hemoglobin 32.5 pg (28.0-33.3); Mean Corpuscular Volume 91.1 fL (83.0-100.0); Mean Platelet Volume 9.8 fL (9.4-12.4); Monocytes # 1.5 K/mcL (0.0-1.3); Monocytes % 8.9 %; Neutrophils # 13.1 K/mcL (1.6-8.9); Platelet Count 226 K/mcL (140-400); Red Blood Count 4.71 M/mcL (4.19-5.50); Red Cell Distribution Width 12.2 % (11.5-14.5); Segmented Neutrophils % 80.4 %; White Blood Count 16.3 K/mcL (4.3-11.1)
[2022-08-05 17:52] LABS: Alanine Aminotransferase 12 Units/L (7-52); Albumin 4.1 g/dL (3.5-5.7); Albumin/Globulin Ratio 1.7 (1.1-2.2); Alkaline Phosphatase 52 Units/L (34-104); Aspartate Amino Transferase 15 Units/L (13-39); BUN/Creatinine Ratio 19 (6-26); Bilirubin,Direct 0.1 mg/dL (0.0-0.2); Bilirubin,Indirect 0.8 mg/dL (0.0-1.0); Bilirubin,Total 0.9 mg/dL (0.3-1.0); Blood Urea Nitrogen 25 mg/dL (8-23); Calcium 9.8 mg/dL (8.6-10.3); Carbon Dioxide 24 mEq/L (23-29); Chloride 102 mEq/L (98-107); Globulin 2.4 g/dL (2.4-3.5); Glucose 126 mg/dL (70-105); Lipase > 1800 Units/L (11-82); Osmolality,Calculated 286 (280-300); Potassium 4.1 mEq/L (3.5-5.1); Sodium 135 mEq/L (136-145); Total Protein 6.5 g/dL (6.4-8.9); Troponin I < 0.03 ng/mL (< 0.04)
[2022-08-05] MEDS ORDERED: Ringers Solution, Lactated 1,000 ML IVC ONE (18:56)
[2022-08-05] MEDS ORDERED: Metoclopramide 10 MG/2 ML VIAL IVP ONE (18:57)
[2022-08-05] MEDS ORDERED: *HR* HYDROmorphone (PF) 1 MG/ML SYRINGE IVP ONE ×2 (18:57→19:44)
[2022-08-05 20:54] LABS: Bilirubin,Urine Negative (Negative); Blood,Urine Negative (Negative); Clarity,Urine Clear (Clear); Color,Urine Colorless (Yellow); Glucose,Urine (UA) Normal (Normal); Ketones,Urine Negative (Negative); Leukocyte Esterase,Urine Negative (Negative); Nitrite,Urine Negative (Negative); PH,Urine 5.5 pH Units (5.0-8.0); Protein,Urine Negative (Neg-Trace); Specific Gravity,Urine > 1.030 (1.010-1.025); Urobilinogen,Urine Normal (Normal)
[2022-08-05] MEDS ORDERED: Ondansetron 4 MG/2 ML VIAL IVP PRN (20:54)
[2022-08-05] MEDS: Ringers Solution, Lactated 1,000 ML IVC SCH (21:30)
[2022-08-05] MEDS ORDERED: Naloxone 0.4 MG/ML INJ IVP PRN (21:46)
[2022-08-05] MEDS: Latanoprost 2.5 ML BOTTLE BOTH EYES SCH (23:26)
[2022-08-05] MEDS ORDERED: Aspirin 81 MG TAB.CHEW PO ONE (23:26)
[2022-08-05] MEDS: Ketorolac 30 MG/ML VIAL IVP SCH (23:28)
[2022-08-05] MEDS ORDERED: Nitroglycerin 0.4 MG TAB.SUBL SL PRN (23:28)
[2022-08-06 04:00] LABS: Hematocrit 44.6 % (37.5-50.1); Hemoglobin 15.5 g/dL (12.9-16.9); Mean Corpuscular HGB Conc 34.8 g/dL (31.6-35.5); Mean Corpuscular Hemoglobin 32.2 pg (28.0-33.3); Mean Corpuscular Volume 92.5 fL (83.0-100.0); Mean Platelet Volume 9.8 fL (9.4-12.4); Platelet Count 231 K/mcL (140-400); Red Blood Count 4.82 M/mcL (4.19-5.50); Red Cell Distribution Width 12.4 % (11.5-14.5)
[2022-08-06 04:13] LABS: VBG Ionized Calcium 1.18 mmol/L (1.15-1.35)
[2022-08-06 04:16] LABS: Estimated Average Glucose 123 mg/dl; Hemoglobin A1C 5.9 %
[2022-08-06 04:22] LABS: INR 1.3; Prothrombin Time 14.8 Seconds (9.4-12.1)
[2022-08-06 04:25] LABS: Activated Partial Thrombo Time 33.1 Seconds (26.0-36.0)
[2022-08-06 04:46] LABS: Calcium 9.3 mg/dL (8.6-10.3); Chol/HDL Ratio 3.9 (0-4.9); Magnesium 1.9 mg/dL (1.6-2.6); Potassium 4.5 mEq/L (3.5-5.1)
[2022-08-06] MEDS: Ringers Solution, Lactated 1,000 ML IVC SCH ×2 (06:11→20:29)
[2022-08-06] MEDS: Ketorolac 30 MG/ML VIAL IVP SCH ×3 (06:11→20:21)
[2022-08-06] MEDS: Morphine Sulfate 2 MG/ML SYRINGE IVP PRN ×3 (08:28→22:32)
[2022-08-06] MEDS: Metoprolol XL (24 HR) Succ 25 MG TAB.ER.24H PO SCH (16:03)
[2022-08-06] MEDS: Isosorbide MONOnitrate (24 HR) 30 MG TAB.ER.24H PO SCH (16:03)
[2022-08-06] MEDS: Latanoprost 2.5 ML BOTTLE BOTH EYES SCH (20:22)
[2022-08-07] MEDS: Ketorolac 30 MG/ML VIAL IVP SCH ×5 (01:24→22:10)
[2022-08-07 01:42] LABS: Hematocrit 42.6 % (37.5-50.1); Hemoglobin 14.3 g/dL (12.9-16.9); Mean Corpuscular HGB Conc 33.6 g/dL (31.6-35.5); Mean Corpuscular Hemoglobin 32.4 pg (28.0-33.3); Mean Corpuscular Volume 96.4 fL (83.0-100.0); Mean Platelet Volume 10.1 fL (9.4-12.4); Platelet Count 171 K/mcL (140-400); Red Blood Count 4.42 M/mcL (4.19-5.50); Red Cell Distribution Width 12.7 % (11.5-14.5); White Blood Count 21.4 K/mcL (4.3-11.1)
[2022-08-07 01:59] LABS: Calcium 8.5 mg/dL (8.6-10.3); Potassium 4.5 mEq/L (3.5-5.1)
[2022-08-07] MEDS: Ringers Solution, Lactated 1,000 ML IVC SCH ×3 (05:28→20:35)
[2022-08-07] MEDS: Morphine Sulfate 2 MG/ML SYRINGE IVP PRN ×3 (06:26→23:38)
[2022-08-07] MEDS ORDERED: Ondansetron 4 MG/2 ML VIAL IVP PRN (07:49)
[2022-08-07] MEDS ORDERED: *HR* FentaNYL (PF) 100 MCG/2 ML VIAL ONE (09:43)
[2022-08-07] MEDS ORDERED: *HR* Propofol 200 MG/20 ML VIAL IVP ONE (09:43)
[2022-08-07] MEDS ORDERED: Lidocaine -MPF 2% 5 ML VIAL ONE (09:44)
[2022-08-07] MEDS ORDERED: *HR* Succinylcholine 200 MG/10 ML VIAL IVP ONE (09:44)
[2022-08-07] MEDS ORDERED: *HR* Metoprolol 5 MG/5 ML VIAL IVP ONE (09:47)
[2022-08-07] MEDS ORDERED: Lidocaine HCL 4 ML Topical Solution (Laryng-O-Jet Kit Sterile Pak) TP ONE (09:48)
[2022-08-07] MEDS ORDERED: Ondansetron 4 MG/2 ML VIAL ONE (09:53)
[2022-08-07] MEDS ORDERED: Indomethacin 50 MG SUPP.RECT RC ONE (11:14)
[2022-08-07] MEDS: Isosorbide MONOnitrate (24 HR) 30 MG TAB.ER.24H PO SCH (13:00)
[2022-08-07] MEDS: Metoprolol XL (24 HR) Succ 25 MG TAB.ER.24H PO SCH (13:00)
[2022-08-07] MEDS: Piperacillin/Tazobactam 3.375 GM in 0.9 % Sodium Chloride Mini Bag 100 ML IVPB SCH ×2 (15:45→23:37)
[2022-08-07] MEDS: Latanoprost 2.5 ML BOTTLE BOTH EYES SCH (20:35)
[2022-08-07] MEDS ORDERED: Latanoprost 2.5 ML BOTTLE BOTH EYES SCH (21:00)
[2022-08-08] MEDS: Ketorolac 30 MG/ML VIAL IVP SCH ×2 (00:34→10:18)
[2022-08-08 05:06] VITALS: PULSE 70; TEMP 98.5; O2SAT 91
[2022-08-08 05:17] LABS: Basophils % 0.1 %; Eosinophils # 0.1 K/mcL (0.0-0.6); Eosinophils % 0.8 %; Hematocrit 36.4 % (37.5-50.1); Immature Granulocytes % 0.7 % (0-4); Lymphocytes # 0.7 K/mcL (0.6-4.6); Lymphocytes % 4.5 %; Mean Corpuscular HGB Conc 33.8 g/dL (31.6-35.5); Mean Corpuscular Hemoglobin 32.1 pg (28.0-33.3); Mean Platelet Volume 10.2 fL (9.4-12.4); Monocytes # 1.3 K/mcL (0.0-1.3); Monocytes % 8.5 %; Neutrophils # 13.4 K/mcL (1.6-8.9); Platelet Count 151 K/mcL (140-400); Red Blood Count 3.83 M/mcL (4.19-5.50); Red Cell Distribution Width 12.1 % (11.5-14.5); Segmented Neutrophils % 85.4 %; White Blood Count 15.7 K/mcL (4.3-11.1)
[2022-08-08 05:18] LABS: Hemoglobin 12.3 g/dL (12.9-16.9)
[2022-08-08] MEDS: Morphine Sulfate 2 MG/ML SYRINGE IVP PRN (05:32)
[2022-08-08 05:41] LABS: Albumin 2.6 g/dL (3.5-5.7); Albumin/Globulin Ratio 1.4 (1.1-2.2); Bilirubin,Total 0.9 mg/dL (0.3-1.0); Globulin 1.9 g/dL (2.4-3.5); Total Protein 4.5 g/dL (6.4-8.9)
[2022-08-08] MEDS: Ringers Solution, Lactated 1,000 ML IVC SCH (07:47)
[2022-08-08] MEDS: Piperacillin/Tazobactam 3.375 GM in 0.9 % Sodium Chloride Mini Bag 100 ML IVPB SCH (07:48)
[2022-08-08] MEDS: Metoprolol XL (24 HR) Succ 25 MG TAB.ER.24H PO SCH (07:49)
[2022-08-08] MEDS: Isosorbide MONOnitrate (24 HR) 30 MG TAB.ER.24H PO SCH (07:51)
[2022-08-08] MEDS ORDERED: Aspirin 81 MG TAB.CHEW PO SCH (09:00)
[2022-08-08] MEDS ORDERED: amLODIPine 5 MG TABLET PO SCH (09:00)
[2022-08-08 10:05] VITALS: BP 125/62
[2022-08-08 10:55] LABS: ANA IgG by ELISA NONE DETECTED (None Detected); Immunoglobulin G Subclass 1 437 mg/dL (240-1118); Immunoglobulin G Subclass 2 256 mg/dL (124-549); Immunoglobulin G Subclass 3 71 mg/dL (21-134); Immunoglobulin G Subclass 4 13 mg/dL (1-123)
== END 2022-08-08 14:20 | disposition home or self-care (01) | DRG 439 ==
LOC: EMEROOARM 16:05 → 2ANU 16:05 → SUATTDRO 19:43 → 2ANU 20:09
PROVIDERS: ADMIT Student in an Organized Health Care Education/Training Program; ATTEND Family Medicine